=== PATIENT | female | born 1965 | race Caucasian/White ===

== ENCOUNTER 2019-06-13 10:12 | Outpatient (CLI) | payer OTHER, SELFPAY ==
[2019-06-13 10:52] LABS: Alanine Aminotransferase 19 U/L (4-35); Albumin Level 3.7 g/dL (3.5-5.1); Alkaline Phosphatase 60 U/L (38-126); Aspartate Amino Transferase 26 U/L (14-36); Bilirubin,Total 1.4 mg/dL (0.2-1.3); Blood Urea Nitrogen 17 mg/dL (7-17); Calcium 8.6 mg/dL (8.4-10.2); Carbon Dioxide 28 mmol/L (22-30); Chloride 105 mmol/L (98-107); Cholesterol 175 mg/dL (0-200); Estimated Glomerular Filt Rate > 60; Glucose 91 mg/dL (65-105); HDL Direct 46 mg/dL; Hemoglobin A1C 5.3 % (<5.7); Potassium 4.4 mmol/L (3.4-5.0); Sodium 139 mmol/L (137-145); Triglycerides 70 mg/dL (<150)
[2019-06-13 11:03] LABS: LDL Cholesterol Direct 98 mg/dL
[2019-06-13 11:20] LABS: Basophils Percent Auto 0.4 % (0.2-1.2); Eosinophils Absolute Auto 0.1 K/mm3 (0-0.3); Eosinophils Percent Auto 1.7 % (0-4.4); Hematocrit 40.2 % (37.0-47.0); Hemoglobin 13.4 g/dL (12.0-15.0); Immature Granulocyte Absolute 0.01 K/mm3 (0.00-0.031); Immature Granulocyte Percent A 0.2 % (0-0.5); Lymphocytes Absolute Auto 1.84 K/mm3 (0.9-3.2); Lymphocytes Percent Auto 39.4 % (18.3-44.2); Mean Corpuscular HGB Conc 33.3 g/dl (32-36); Mean Corpuscular Hemoglobin 30.2 pg (26-34); Mean Corpuscular Volume 90.5 fl (80-100); Mean Platelet Volume 11.3 fl (7.4-10.4); Monocytes Absolute Auto 0.5 K/mm3 (0.1-0.6); Monocytes Percent Auto 10.1 % (2.6-8.5); Neutrophils Absolute Auto 2.3 K/mm3 (1.3-6.7); Neutrophils Percent Auto 48.2 % (45.5-73.1); Platelet Count Result 222 k/mm3 (150-375); Red Blood Count 4.44 M/mm3 (4.2-5.4); Red Cell Distribution Width 11.5 % (11.5-14.5); White Blood Count 4.7 K/mm3 (4.5-10.0)
[2019-06-13 11:23] LABS: Thyroid Stimulating Hormone 0.199 uIU/mL (0.465-4.680)
[2019-06-13 11:25] LABS: Add Urine Microscopic? YES; Appearance Urine Clear (Clear); Bilirubin Urine Negative (Negative); Blood Urine Negative (Negative); Color Urine Yellow (Yellow); Glucose Urine UA Negative (Negative); Ketones Urine Negative (Negative); Leukocyte Esterase Ur Negative LEU/UL (Negative); Mucus Urine Rare /lpf; Nitrate Urine Negative (Negative); Protein Urine Negative (Negative); RBC Urine 0-2 /hpf (0-2); Specific Grav Ur 1.019 (1.001-1.035); Squamous Epithelial Cell Urine Occasional /hpf (Few); WBC Urine 0-3 /hpf
[2019-06-13 11:35] LABS: Creatinine Urine 106.1 mg/dL
[2019-06-13 11:45] LABS: MALB Creatinine Ratio < 5.7 mg/g (0-30); Microalbumin Urine Random < 6.0 mg/L (0-16.7)
[2019-06-13 11:58] LABS: Folic Acid 12.6 ng/mL (2.76->20)
[2019-06-13 12:00] LABS: Iron 125 ug/dL (37-170); Percent Iron Saturation 45 % (20-50)
[2019-06-13 12:18] LABS: Free T4 Free Thyroxine 1.63 ng/mL (0.78-2.19)
[2019-06-13 12:30] LABS: Vitamin D 25 Hydroxy 37.4 ng/mL
== END 2019-06-13 10:13 | disposition home or self-care (01) ==
PROVIDERS: PCP Internal Medicine; Visit Provider Internal Medicine
DX: F32.9 Major depressive disorder, single episode, unspecified (principal); F41.9 Anxiety disorder, unspecified; Z79.899 Other long term (current) drug therapy; E55.9 Vitamin D deficiency, unspecified; E89.0 Postprocedural hypothyroidism; G62.9 Polyneuropathy, unspecified; G47.33 Obstructive sleep apnea (adult) (pediatric); N39.0 Urinary tract infection, site not specified
CPT/HCPCS: 36415; 80053; 80061; 81001; 82043; 82306; 82607; 82728; 82746; 83036; 83540; 83550; 84439; 84443; 85025

== ENCOUNTER 2019-07-03 09:59 | Outpatient (CLI) | payer OTHER, SELFPAY ==
[2019-07-03 11:21] LABS: Hepatitis B Surface Antigen Negative (Negative)
[2019-07-03 11:27] LABS: HAV RESULT Negative (Negative); Hepatitis B Core IgM Result Negative (Negative)
[2019-07-03 11:39] LABS: Hepatitis C Virus Antibody Negative (Negative)
== END 2019-07-03 10:00 | disposition home or self-care (01) ==
PROVIDERS: PCP Internal Medicine; Visit Provider Internal Medicine
DX: Z77.21 Contact with and (suspected) exposure to potentially hazardous body fluids (principal)
CPT/HCPCS: 36415; 80074

== ENCOUNTER 2019-08-06 15:16 | Outpatient (CLI) | payer OTHER, SELFPAY ==
--- NOTE | ~2019-08-06 | DEXA_ITS ---
Bone Density Report Name: Marcie Saravia Age: 53 Sex: Female Ethnicity: White Date of : 1965 Indication: postmenopausal; prior fracture; cancer; hysterectomy; Referring Provider: PHYSICIAN NOT ON STAFF Study: Bone densitometry was performed. Exam Date: August 06, 2019 Accession number: [id number] Bone Density: Region BMD T-score Z-score Classification AP Spine (L1-L4) 0.946 -0.9 0.1 Normal Femoral Neck (Left) 0.637 -1.9 -0.9 Osteopenia Total Hip (Left) 0.830 -0.9 -0.3 Normal Total Hip Bilateral Avg 0.806 -1.1 -0.5 Osteopenia Femoral Neck (Right) 0.609 -2.2 -1.2 Osteopenia Total Hip (Right) 0.781 -1.3 -0.7 Osteopenia World Health Organization criteria for BMD impression classify patients as: Normal (T-score at or above -1.0), Osteopenia (T-score between -1.0 and -2.5), or Osteoporosis (T-score at or below -2.5). 10-year Fracture Risk: FRAX not reported because: Treated for osteoporosis Clinical Information Provided by Patient: Has had a low trauma fracture Is being treated for osteoporosis Has used the following medications: Prolmitali (i.e. denosumab) Has the following medical conditions: Cancer, Hysterectomy Patient maximum height was 67 Menopause Age: 52 Drinks caffeinated beverages Onset of menses at age 15 Number of children 2 Impression: The patient has low bone mass, based on the Right Femoral Neck T-score. The patient has risk factors, including: previous fracture. Discussion: It is important to ask patients whether they are taking their medications and to encourage continued and appropriate compliance with their osteoporosis therapies to reduce fracture risk. It is also important to review their risk factors and encourage appropriate calcium and vitamin D intakes, exercise, fall prevention and other lifestyle measures. Follow-Up: Consider a repeat BMD and Vertebral Fracture Assessment (VFA) exam in 2 years or sooner if medically necessary, to reassess this patient's status. Reported by: LIBRADO on 08/06/2019 3:48:00 PM. Reviewed, dictated and finalized at location A.
== END 2019-08-06 15:17 | disposition home or self-care (01) ==
PROVIDERS: PCP Internal Medicine
DX: C50.912 Malignant neoplasm of unspecified site of left female breast (principal); Z79.811 Long term (current) use of aromatase inhibitors; M85.851 Other specified disorders of bone density and structure, right thigh; M85.852 Other specified disorders of bone density and structure, left thigh
CPT/HCPCS: 77080

== ENCOUNTER 2019-10-23 09:32 | Outpatient (CLI) | payer OTHER, SELFPAY ==
--- NOTE | ~2019-10-23 | MR_ITS ---
EXAMINATION: MR breast BI wo con INDICATION: Patient status post bilateral mastectomy with implant reconstruction, assess implant inte grity TECHNIQUE: Axial T2 FSE ASSET, axial VIBRANT, Sagittal T2 FSE, Sagittal T2 STIR silicone SAT, Sagitta l STIR Water suppression COMPARISON: None FINDINGS: Changes of bilateral mastectomy with implant reconstruction are noted. RIGHT BREAST: The breast implant appears intact without evidence of intracapsular or extracapsular ru pture. No evidence of signal abnormalities in the axillary or internal mammary node distributions. LEFT BREAST: The breast implant appears intact without evidence of intracapsular or extracapsular rup ture. No evidence of signal abnormalities in the axillary or internal mammary node distributions.] IMPRESSION: 1. Changes of bilateral mastectomy with implant reconstruction and intact breast implants. BI-RADS Category 1: Negative Reviewed, dictated and finalized at location A. IMPRESSION: 1. Changes of bilateral mastectomy with implant reconstruction and intact breas t implants. BI-RADS Category 1: Negative
== END 2019-10-23 09:33 | disposition home or self-care (01) ==
PROVIDERS: PCP Internal Medicine
DX: C50.919 Malignant neoplasm of unspecified site of unspecified female breast (principal); Z15.02 Genetic susceptibility to malignant neoplasm of ovary; Z15.89 Genetic susceptibility to other disease; Z85.3 Personal history of malignant neoplasm of breast; Z98.890 Other specified postprocedural states
CPT/HCPCS: 77047

== ENCOUNTER 2020-09-21 09:25 | Emergency (ER) | payer OTHER, SELFPAY ==
[2020-09-21] VITALS (22 sets, daily range): BP systolic 114–124; BP diastolic 68–99; PULSE 60–83; RESP 10–28; TEMP 36.7; O2SAT 62–100
--- NOTE | ~2020-09-21 | XR_ITS ---
EXAMINATION: XR chest 2V EXAM DATE: 09/21/2020 09:44 INDICATION: Acute onset chest pain, facial numbness. Right-sided tingling. TECHNIQUE: Frontal and lateral projections of the chest obtained and reviewed. Comparison is made to prior examination from 02/13/2019. FINDINGS: The lungs are clear. There are no pleural effusions. The cardiomediastinal silhouette is within normal limits. There is no pneumothorax suspected. The bones and soft tissues are unremarkab le. There are cholecystectomy clips. IMPRESSION: No acute cardiopulmonary findings. Reviewed, dictated and finalized at location B.
--- NOTE | 2020-09-21 09:34 | ECG_ITS ---
Measurements Intervals [place] Rate: 87 P: 115 NH: 195 QRS: 106 QRSD: 71 T: 126 QT: 337 QTc: 407 Interpretive Statements SINUS RHYTHM ARM LEADS REVERSED BASELINE ARTIFACT- I, II, AVR, AVL ATYPICAL ECG Electronically Signed On 09-21-2020 10:22:07 CDT by Trey Paredes D.O.
[2020-09-21 09:48] LABS: Basophils Percent Auto 0.3 % (0.2-1.2); Eosinophils Absolute Auto 0.1 K/mm3 (0-0.3); Eosinophils Percent Auto 1.3 % (0-4.4); Hematocrit 42.7 % (37.0-47.0); Hemoglobin 14.4 g/dL (12.0-15.0); Immature Granulocyte Absolute 0.01 K/mm3 (0.00-0.031); Immature Granulocyte Percent A 0.2 % (0-0.5); Lymphocytes Absolute Auto 2.24 K/mm3 (0.9-3.2); Lymphocytes Percent Auto 36.7 % (18.3-44.2); Mean Corpuscular HGB Conc 33.7 g/dl (32-36); Mean Corpuscular Hemoglobin 30.8 pg (26-34); Mean Corpuscular Volume 91.2 fl (80-100); Mean Platelet Volume 10.4 fl (7.4-10.4); Monocytes Absolute Auto 0.5 K/mm3 (0.1-0.6); Neutrophils Absolute Auto 3.3 K/mm3 (1.3-6.7); Neutrophils Percent Auto 53.5 % (45.5-73.1); Platelet Count Result 241 k/mm3 (150-375); Red Blood Count 4.68 M/mm3 (4.2-5.4); Red Cell Distribution Width 11.3 % (11.5-14.5); White Blood Count 6.1 K/mm3 (4.5-10.0)
--- NOTE | 2020-09-21 09:53 | ED.CHESTPAIN ---
HPI - Chest Pain General Chief Complaint: Chest Pain Stated Complaint: CP Time Seen by Provider: 09/21/20 09:34 Source: RN notes reviewed History of Present Illness HPI narrative: Patient presents to emergency department from work for chest pain. 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 when she developed initially pain and tightness in her right ear rating down to her right jaw and her neck and then down into her midsternal chest she states the episode lasted for approximately 15 minutes with a feeling of pressure on her chest she states that this time the chest pain is improved she denies any previous cardiac history denies any shortness of breath with the episode she denies any fevers or chills abdominal pain nausea or vomiting Related Data Home Medications Medication Instructions Recorded Confirmed cyclobenzaprine mg 09/21/20 exemestane mg 09/21/20 levothyroxine 09/21/20 trazodone 09/21/20 valacyclovir 09/21/20 Allergies Allergy/AdvReac Type Severity Reaction Status Date / Time capsaicin Allergy Mild Palpitation Verified 09/21/20 10:15 s doxycycline Allergy Mild rash Verified 09/21/20 10:15 paclitaxel Allergy Mild Legs Verified 09/21/20 10:15 turned bright purple Sulfa (Sulfonamide Allergy Mild rash Verified 09/21/20 10:15 Antibiotics) Review of Systems Review of Systems: Narrative: Gen.: Denies fevers or chills ENT: Denies congestion Respiratory: Denies shortness of breath or cough CV: See HPI GI: Denies abdominal pain nausea, emesis or diarrhea denies burning, urgency, frequency or hematuria Musculoskeletal: Denies back pain or muscle pain Neuro: Denies numbness, tingling, weakness or focal weakness Skin: Denies rash Except as documented, all other systems reviewed and negative [facility] Past Medical History Medical History (Updated 09/21/20 @ 13:02 by Sonu Heaton DO) History of breast cancer Social History Social History (Updated 09/21/20 @ 09:54 by Sonu Heaton DO) Smoking status: Never smoker Exam Narrative: Exam Narrative: APPEARANCE: No acute distress, nontoxic, resting in bed EYES: EOMI HEENT: Normocephalic, atraumatic, OMM right TM is normal appearance RESPIRATORY: No respiratory distress Clear to auscultation bilaterally with no rhonchi wheezing or rales. CARDIOVASCULAR: Regular rate and rhythm without murmurs rubs or gallops. ABDOMINAL: Soft, nontender, nondistended, no rebound or guarding MUSCULOSKELETAl: Moves all extremities. No clubbing, cyanosis or edema. NEURO: Awake and alert. Following commands, speech normal, no focal deficits SKIN:: Warm, dry. No rashes lesions or abrasions PSYCHIATRIC: Normal affect/mood, Course Course Emergency Course: Patient has had no further episodes of chest pain while in ED Called discussed with ALLYSON Floyd who discussed the case with Dr. Curtis. Feels the patient may have 3-hour troponin and if negative may be discharged follow-up as an outpatient Discussed with patient results of workup and diagnosis. Discussed need for follow-up with primary care, proper use of medication, and reasons to return to the emergency department. Patient understands and agrees to current treatment plan Vital Signs Vital signs: Vital Signs Temperature 98.0 F 09/21/20 09:34 Pulse Rate 76 09/21/20 09:34 Respiratory Rate 22 H 09/21/20 09:34 Blood Pressure 123/84 09/21/20 09:34 Pulse Oximetry 100 09/21/20 09:34 Temperature 98.0 F 09/21/20 09:34 Pulse Rate 83 09/21/20 12:15 Respiratory Rate 18 09/21/20 12:15 Blood Pressure 121/84 09/21/20 11:05 Pulse Oximetry 100 09/21/20 12:15 MDM - Chest Pain MDM Narrative Medical decision making narrative: Patient's EKGs and labs are without significant high risk changes. Cardiac risk factors reviewed. Patient is felt likely low risk for ACS and reasonable for further risk stratification testing as an outpatient. Pain was not sudden or maxi
[2020-09-21 10:01] LABS: INR 0.9; Prothrombin Time 12.2 Seconds (11.1-14.7)
[2020-09-21 10:02] LABS: Partial Thromboplastin Time 25.3 SECONDS (22.3-36.8)
[2020-09-21 10:09] LABS: Troponin I < 0.012 ng/mL (0.000-0.034)
[2020-09-21] MEDS: ASPIRIN 81 MG CHEWABLE TABLET 324 MG PO (10:09)
[2020-09-21 10:27] LABS: Alanine Aminotransferase 19 U/L (4-35); Albumin Level 4.3 g/dL (3.5-5.1); Alkaline Phosphatase 61 U/L (38-126); Anion Gap 7 mmol/L (8-16); Aspartate Amino Transferase 27 U/L (14-36); Bilirubin,Total 1.1 mg/dL (0.2-1.3); Blood Urea Nitrogen 11 mg/dL (7-17); Calcium 9.1 mg/dL (8.4-10.2); Carbon Dioxide 28 mmol/L (22-30); Chloride 106 mmol/L (98-107); Estimated CRCL calculation 76 ml/min; Estimated Glomerular Filt Rate > 60; Glucose 88 mg/dL (65-110); Lipase 87 U/L (23-300); Potassium 4.1 mmol/L (3.4-5.0); Sodium 141 mmol/L (137-145)
[2020-09-21 11:54] LABS: D Dimer 0.27 ug/mL (<0.48)
[2020-09-21 12:55] LABS: Troponin I < 0.012 ng/mL (0.000-0.034)
== END 2020-09-21 13:24 | disposition home or self-care (01) ==
PROVIDERS: Emergency Provider Emergency Medicine
DX: R07.9 Chest pain, unspecified (principal); Z85.3 Personal history of malignant neoplasm of breast
CPT/HCPCS: 36415; 71046; 80053; 83690; 84484; 85025; 85380; 85610; 85730; 93005; 99284; A9270

== ENCOUNTER 2021-01-18 08:02 | Outpatient (CLI) | payer OTHER, SELFPAY ==
--- NOTE | ~2021-01-18 | MR_ITS ---
EXAMINATION: MR knee LT wo con DATE: 01/18/2021 09:19 INDICATION: Anterior and medial left knee pain TECHNIQUE: Magnetic resonance imaging (MRI) of the left knee was performed without intravenous contra st. Sequences included coronal PD-weighted FSE, coronal PD-weighted FS FSE, sagittal T2-weighted FSE , sagittal PD-weighted FS FSE and axial PD weighted fat saturated FSE. COMPARISON: None. FINDINGS: Medial compartment: Medial meniscus is normal. There is mild joint space narrowing with diffuse mild partial-thickness ca rtilage loss with smooth chondral surface and without degenerative subchondral changes along both the medial tibial plateau and weightbearing medial femoral condyle. Lateral compartment: Lateral meniscus is normal. Additional diffuse mild partial-thickness cartilage loss with smooth kendrick dral surface and without degenerative subchondral changes along the weightbearing lateral femoral con dyle. Patellofemoral compartment: Shallow chondral fissuring at the medial side of the medial patellar facet. Partial-thickness cartila ge loss with smooth chondral surface along the lateral side of the lateral patellar facet. Ligaments and tendons: Anterior and posterior cruciate ligaments are normal. The medial collateral ligament and fibular sherif ateral ligament complex are normal. Small amount of enthesopathic ossification and mild tendinopathy at the distal quadriceps tendon. Patellar tendon is normal. The visualized medial and lateral hamstri ng tendons as well as the iliotibial band are normal. Fluid: Physiologic amount of fluid in the joint space. No loose osteochondral bodies identified. Osseous/other: Normal marrow signal. No fracture or pathologic marrow replacing process. Mild edema at the lateral a spect of the infrapatellar fat pad which can be seen with fat pad impingement syndrome. IMPRESSION: 1. Minimal tricompartmental osteoarthritis with small region of moderate grade chondral malacia the m edial patellar facet. 2. Edema in the infrapatellar fat pad which can be seen with fat pad impingement syndrome. 3. Distal quadriceps enthesopathy. Reviewed, dictated and finalized at location A. MIXER IMPRESSION: 1. Minimal tricompartmental osteoarthritis with small region of moderate grade chondral malacia the medial patellar facet. 2. Edema in the infrapatellar fat pad which can be seen with fat pad impingemen t syndrome. 3. Distal quadriceps enthesopathy.
== END 2021-01-18 08:03 | disposition home or self-care (01) ==
PROVIDERS: Visit Provider Orthopaedic Surgery
DX: M17.12 Unilateral primary osteoarthritis, left knee (principal)
CPT/HCPCS: 73721

== ENCOUNTER 2021-03-04 07:42 | Outpatient (RCR) | payer OTHER, SELFPAY ==
--- NOTE | 2021-03-04 09:06 | PTOPEVAL ---
PHYSICAL THERAPY EVALUATION AND PLAN OF CARE 03-04-21 Thank you for referring Marcie Saravia to [facility], for the diagnosis of L knee pain/OA. She is scheduled to be seen for therapy? 1 x/week for 4 weeks. Please review, sign, date and return this plan of care YEVGENIY. I agree with and certify that the following plan of care is medically necessary. Referring Physician Date Attending Provider: Héctor Oakley MD *PT Outpatient Evaluation Start: 03/04/21 08:08 Document 03/04/21 08:05 ERICA (Rec: 03/04/21 09:00 ERICA [id number]) Therapy Assessment Status Assessment Status Assessment Status Evaluation Outpatient Past Medical History Past Medical History Source of Past Medical History Recalled from Previous Visit, Confirmed with Patient/Family Neurological History Hx Neurological Disorders No Significant History Cardiovascular History Hx Cardiac Disorders No Significant History Respiratory History Hx Respiratory Disorders No Significant History Gastrointestinal History Hx Appendectomy Yes Hx Cholecystectomy Yes Hx Gastroesophageal Reflux Disease Yes Hx Polyps Yes Genitourinary History Hx Kidney Stones Yes: x4 Musculoskeletal History Hx Arthritis Yes: all joints hurt- since cancer treatment, 5 yr oral meds just completed Hx Fractures Yes: pelvic- 3 places, ribs- thrown off horse Hx Orthopedic Surgery Yes: L knee arthroscopy; Hx Other Musculoskeletal Disorders Yes: L frozen shoulder after mastectomy; Hematological History Hx Hematological Disorders No Significant History Endocrine History Hx Hypothyroidism Yes: meds HEENT History Hx Tonsillectomy Yes Hx Ear Surgery Yes: L MASTOIDECTOMY- chronic infections, hearing aid L ear Integumentary History Hx Other Skin Disorders Yes: BASAL CELL Other History Hx Cancer Yes: breast cancer 2016 Hx Chemotherapy Yes Evaluation Information Problem Diagnosis L knee OA/ DJD Onset Oct 2020 Subjective Information gradual increase in knee pain, Query Text:As Reported By Patient/ no injury or trauma to knee; Family more issues with walking; said knee was non surgical; 01-28-21 steroid injection helped pain; had several massages over L quad and pain is less than it was Diagnostic Tests X-Rays For This Problem Yes MRI For This Problem Yes: tri
--- NOTE | 2021-05-03 13:39 | PCPTNOTE ---
PHYSICAL THERAPY DISCHARGE 05-03-21 Attending Provider: Héctor Oakley MD Patient:Marcie Saravia Date of :1965 Marcie has not returned for any further treatments since the PT evaluation on 03/04/2021, for the diagnosis of L knee pain. Therefore she will be discharged at this time. The goals were not addressed. Thank you for referring this patient to [facility]. Please review, sign, date and return this discharge summary YEVGENIY. I have been updated about the patient's current status and I agree with discharge from the above service at this time. Referring Physician Date
== END 2021-05-03 15:20 | disposition home or self-care (01) ==
LOC: ANHPT 07:42
PROVIDERS: Visit Provider Orthopaedic Surgery
DX: M25.562 Pain in left knee (principal); M17.12 Unilateral primary osteoarthritis, left knee
CPT/HCPCS: 97110; 97161

== ENCOUNTER 2021-03-12 07:32 | Outpatient (CLI) | payer OTHER, SELFPAY ==
[2021-03-12 08:16] LABS: Add Urine Microscopic? YES; Appearance Urine Clear (Clear); Bilirubin Urine Negative (Negative); Blood Urine Negative (Negative); Color Urine Straw (Yellow); Glucose Urine UA Negative (Negative); Ketones Urine Negative (Negative); Leukocyte Esterase Ur 1+ LEU/UL (Negative); Mucus Urine Rare /lpf; Nitrate Urine Negative (Negative); Protein Urine Negative (Negative); RBC Urine 0-2 /hpf (0-2); Specific Grav Ur 1.006 (1.001-1.035); Urobilinogen Urine Negative mg/dL (<2.0)
== END 2021-03-12 07:33 | disposition home or self-care (01) ==
DX: R10.9 Unspecified abdominal pain (principal)
CPT/HCPCS: 81001; 87086

== ENCOUNTER 2021-06-22 06:40 | Outpatient (CLI) | payer OTHER, SELFPAY ==
--- NOTE | ~2021-06-22 | MR_ITS ---
EXAMINATION: MR brain/brain stem wo/w con DATE: 06/22/2021 07:45 INDICATION: Confusion. Brain fog. World finding difficulty. TECHNIQUE: Magnetic resonance imaging (MRI) of the brain and brainstem was performed without and with 15 mL MultiHance intravenous contrast. COMPARISON: None. FINDINGS: There are scattered areas of nonspecific increased T2-weighted signal intensity in the cere bral white matter, which is within normal limits for the patient's age. 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 There is no intracranial hemorrhage, acute infarction, or abnormal int racranial mass lesion. The ventricles are normal in size. The mastoid air cells are normal. The paran chip sinuses are clear. The orbits are normal. IMPRESSION: 1. Normal aging brain. Reviewed, dictated and finalized at location A. IMPRESSION: 1. Normal aging brain.
[2021-06-22 07:18] LABS: Estimated Glomerular Filt Rate > 60
== END 2021-06-22 06:41 | disposition home or self-care (01) ==
LOC: ANHIMG 06:46
PROVIDERS: Visit Provider Internal Medicine Hematology & Oncology
DX: R41.89 Other symptoms and signs involving cognitive functions and awareness (principal)
CPT/HCPCS: 70553; A9577

== ENCOUNTER 2021-10-07 07:18 | Outpatient (CLI) | payer OTHER, SELFPAY ==
[2021-10-07 08:00] LABS: Alanine Aminotransferase 32 U/L (6-35); Albumin Level 4.3 g/dL (3.5-5.1); Alkaline Phosphatase 71 U/L (38-126); Anion Gap 8 mmol/L (8-16); Aspartate Amino Transferase 45 U/L (14-36); Bilirubin,Total 0.8 mg/dL (0.2-1.3); Blood Urea Nitrogen 23 mg/dL (7-17); Calcium 9.4 mg/dL (8.4-10.2); Carbon Dioxide 31 mmol/L (22-30); Chloride 98 mmol/L (98-107); Cholesterol 211 mg/dL (0-200); Estimated Glomerular Filt Rate > 60; Glucose 99 mg/dL (65-110); HDL Direct 48 mg/dL; Potassium 4.2 mmol/L (3.4-5.0); Sodium 137 mmol/L (137-145); Triglycerides 133 mg/dL (<150)
[2021-10-07 08:11] LABS: LDL Cholesterol Direct 102 mg/dL
== END 2021-10-07 07:19 | disposition home or self-care (01) ==
LOC: ANHLAB 07:22
PROVIDERS: PCP Internal Medicine; Visit Provider Internal Medicine
DX: E03.9 Hypothyroidism, unspecified (principal); Z13.1 Encounter for screening for diabetes mellitus; Z13.220 Encounter for screening for lipoid disorders
CPT/HCPCS: 36415; 80053; 80061; 84443

== ENCOUNTER 2021-11-15 07:45 | Outpatient (CLI) | payer OTHER, SELFPAY ==
--- NOTE | ~2021-11-15 | MR_ITS ---
EXAMINATION: MR breast BI wo con INDICATION: Left breast pain, patient with history of bilateral mastectomy and implant reconstruction TECHNIQUE: Axial T2 FSE ASSET, axial VIBRANT, Sagittal T2 FSE, Sagittal T2 STIR silicone SAT, Sagitta l STIR Water suppression COMPARISON: 10/23/2019 FINDINGS: Again noted are changes of bilateral mastectomy with implant reconstruction. RIGHT BREAST: The right breast implant appears intact without evidence of intracapsular or extracapsu lar rupture. No evidence of signal abnormalities in the axillary or internal mammary node distributio ns. LEFT BREAST: The left breast implant appears intact without evidence of intracapsular or extracapsula r rupture. No evidence of signal abnormalities in the axillary or internal mammary node distributions .] IMPRESSION: 1. Stable changes of bilateral mastectomy with implant reconstruction and intact breast implants. BI-RADS Category 1: Negative Reviewed, dictated and finalized at location A. IMPRESSION: 1. Stable changes of bilateral mastectomy with implant reconstruction and intac t breast implants. BI-RADS Category 1: Negative
== END 2021-11-15 07:46 | disposition home or self-care (01) ==
LOC: ANHIMG 07:50
PROVIDERS: PCP Internal Medicine
DX: C50.919 Malignant neoplasm of unspecified site of unspecified female breast (principal); Z85.3 Personal history of malignant neoplasm of breast; Z98.890 Other specified postprocedural states; Z90.13 Acquired absence of bilateral breasts and nipples; Z15.02 Genetic susceptibility to malignant neoplasm of ovary; Z13.89 Encounter for screening for other disorder; Z15.09 Genetic susceptibility to other malignant neoplasm
CPT/HCPCS: 77047

== ENCOUNTER 2022-01-24 13:07 | Outpatient (CLI) | payer OTHER, SELFPAY ==
[2022-01-24 15:12] LABS: Alanine Aminotransferase 24 U/L (6-35); Albumin Level 4.3 g/dL (3.5-5.1); Alkaline Phosphatase 86 U/L (38-126); Aspartate Amino Transferase 29 U/L (14-36)
== END 2022-01-24 13:08 | disposition home or self-care (01) ==
PROVIDERS: PCP Internal Medicine; Visit Provider Internal Medicine
DX: E03.9 Hypothyroidism, unspecified (principal); R74.8 Abnormal levels of other serum enzymes
CPT/HCPCS: 36415; 80076; 84443

== ENCOUNTER 2022-01-24 15:08 | Outpatient (CLI) | payer OTHER, SELFPAY ==
--- NOTE | ~2022-01-24 | DEXA_ITS ---
Bone Density Report Name: VARSHA CABAN Age: 56 Sex: Female Ethnicity: White Date of : 1965 Indication: hyperparathyroidism; height loss; cancer; hysterectomy; postmenopausal Referring Provider: UNKNOWN, UNKNOWN Study: Bone densitometry was performed. Exam Date: January 24, 2022 Accession number: [id number] Bone Density: Region BMD T-score Z-score Classification AP Spine(L1-L4) 0.869 -1.6 -0.4 Osteopenia Femoral Neck (Left) 0.645 -1.8 -0.7 Osteopenia Total Hip (Left) 0.807 -1.1 -0.4 Osteopenia Femoral Neck (Right) 0.590 -2.3 -1.2 Osteopenia Total Hip (Right) 0.736 -1.7 -0.9 Osteopenia Total Hip Mean 0.771 -1.4 -0.7 Osteopenia World Health Organization criteria for BMD impression classify patients as: Normal (T-score at or above -1.0), Osteopenia (T-score between -1.0 and -2.5), or Osteoporosis (T-score at or below -2.5). 10-year Fracture Risk(1): Major Osteoporotic Fracture 8.7% Hip Fracture 1.3% Reported Risk Factors: [place] (), Neck BMD=0.590, BMI=23.4 (1) FRAX(R) Version 3.08. Fracture probability calculated for an untreated patient. Fracture probability may be lower if the patient has received treatment. Clinical Information Provided by Patient: Has the following medical conditions: Cancer, Hyperparathyroidism, Hysterectomy Patient maximum height was 67 Menopause Age: 51 Drinks caffeinated beverages Onset of menses at age 15 Number of children 2 Impression: The patient has low bone mass, based on the Right Femoral Neck T-score. The patient has an estimated ten-year risk of hip fracture of 1.3% and an estimated ten-year risk of major fracture of 8.7%, based on the WHO FRAX algorithm. Discussion: BONE DENSITY IS LOW AT ONE OR MORE SKELETAL SITES. This patient's lowest T-score is low at one or more skeletal sites. It meets the World Health Organization's (WHO) criteria for ?low bone mass? (T-score between -1.0 and -2.5). The patient's 10-year risk of fracture as calculated by FRAX is less than the threshold where pharmacological therapy is recommended by the National Osteoporosis Foundation (NOF). However, all treatment decisions require clinical judgment and consideration of individual patient factors, including patient preferences, comorbidities, previous drug use, risk factors not captured in the FRAX model (e.g., frailty, falls, vitamin D deficiency, increased bone turnover, interval significant decline in bone density) and possible under or overestimation of fracture risk by FRAX. The patient should follow a healthful lifestyle (good nutrition with adequate calcium and vitamin D, and appropriate weight-bearing exercise). Follow-Up: Consider repeating this study in 2 to 3 years to reassess this patient's status, or sooner if there is some new clinical sol
== END 2022-01-24 15:09 | disposition home or self-care (01) ==
PROVIDERS: PCP Internal Medicine
DX: M85.88 Other specified disorders of bone density and structure, other site (principal); M85.852 Other specified disorders of bone density and structure, left thigh; M85.851 Other specified disorders of bone density and structure, right thigh
CPT/HCPCS: 77080

== ENCOUNTER 2022-06-02 16:29 | Outpatient (CLI) | payer OTHER, SELFPAY ==
[2022-06-02 16:43] LABS: Basophils Percent Auto 0.4 % (0.2-1.2); Eosinophils Absolute Auto 0.1 K/mm3 (0-0.3); Eosinophils Percent Auto 1.9 % (0-4.4); Hematocrit 42.3 % (37.0-47.0); Hemoglobin 13.9 g/dL (12.0-15.0); Immature Granulocyte Absolute 0.01 K/mm3 (0.00-0.031); Immature Granulocyte Percent A 0.2 % (0-0.5); Lymphocytes Absolute Auto 2.15 K/mm3 (0.9-3.2); Lymphocytes Percent Auto 41.8 % (18.3-44.2); Mean Corpuscular HGB Conc 32.9 g/dl (32-36); Mean Corpuscular Hemoglobin 30.4 pg (26-34); Mean Corpuscular Volume 92.6 fl (80-100); Mean Platelet Volume 10.1 fl (7.4-10.4); Monocytes Absolute Auto 0.5 K/mm3 (0.1-0.6); Monocytes Percent Auto 9.3 % (2.6-8.5); Neutrophils Absolute Auto 2.4 K/mm3 (1.3-6.7); Neutrophils Percent Auto 46.4 % (45.5-73.1); Platelet Count Result 236 k/mm3 (150-375); Red Blood Count 4.57 M/mm3 (4.2-5.4); Red Cell Distribution Width 11.7 % (11.5-14.5); White Blood Count 5.1 K/mm3 (4.5-10.0)
[2022-06-02 16:57] LABS: Anion Gap 7 mmol/L (8-16); Blood Urea Nitrogen 12 mg/dL (7-17); Carbon Dioxide 31 mmol/L (22-30); Chloride 103 mmol/L (98-107); Estimated Glomerular Filt Rate > 60; Glucose 91 mg/dL (65-110); Potassium 4.2 mmol/L (3.4-5.0); Sodium 141 mmol/L (137-145)
[2022-06-02 17:28] LABS: Thyroid Stimulating Hormone 0.114 uIU/mL (0.465-4.680)
== END 2022-06-02 16:30 | disposition home or self-care (01) ==
PROVIDERS: PCP Internal Medicine; Visit Provider Internal Medicine
DX: R09.89 Other specified symptoms and signs involving the circulatory and respiratory systems (principal); R51.9 Headache, unspecified; R00.9 Unspecified abnormalities of heart beat; R03.0 Elevated blood-pressure reading, without diagnosis of hypertension
CPT/HCPCS: 36415; 80048; 83735; 84443; 85025

== ENCOUNTER 2022-06-07 16:57 | Outpatient (CLI) | payer OTHER, SELFPAY ==
--- NOTE | ~2022-06-07 | CT_ITS ---
EXAMINATION: CT brain wo con DATE: 06/07/2022 17:08 INDICATION: HEADACHE . TECHNIQUE: Computed tomography (CT) of the head was performed without intravenous contrast. The mA wa s adjusted according to patient size. Iterative reconstruction technique was employed. The dose-lengt h product was 605.33 mGy-cm. COMPARISON: MR brain 06/22/2021. FINDINGS: No acute intracranial hemorrhage or extra-axial fluid collection. No hydrocephalus, mass, or herniation. No acute ischemic infarct. Unremarkable dural venous sinus attenuation. No acute osseous abnormality. Status post left mastoidectomy, the remaining aerated spaces are clear. Mild chronic white matter change. Mild intracranial atherosclerotic calcification. IMPRESSION: No acute intracranial process. Reviewed, dictated and finalized at location K.
== END 2022-06-07 16:58 | disposition home or self-care (01) ==
PROVIDERS: PCP Internal Medicine; Visit Provider Internal Medicine
DX: R51.9 Headache, unspecified (principal)
CPT/HCPCS: 70450; 82384; 83835

== ENCOUNTER 2022-06-08 07:01 | Outpatient (NON) | payer OTHER, SELFPAY ==
[2022-06-13 11:59] LABS: Metanephrine, Total Urine 276 mcg/24 h (224-832); Metanephrine, Urine 109 mcg/24 h (90-315); Normetanephrine, Urine 167 mcg/24 h (122-676)
[2022-06-18 04:04] LABS: Calculated Total (E+NE) 45 mcg/24 h (26-121); Dopamine, 24hr Urine 175 mcg/24 h (52-480); Epinephrine, 24hr Urine 7 mcg/24 h (2-24); Norepinephrine, 24hr Urine 38 mcg/24 h (15-100)
== END 2022-06-08 07:02 | disposition home or self-care (01) ==
PROVIDERS: PCP Internal Medicine; Visit Provider Internal Medicine
DX: E03.9 Hypothyroidism, unspecified (principal); R09.89 Other specified symptoms and signs involving the circulatory and respiratory systems; R51.9 Headache, unspecified; R00.9 Unspecified abnormalities of heart beat; R03.0 Elevated blood-pressure reading, without diagnosis of hypertension
CPT/HCPCS: 82384; 83835

== ENCOUNTER 2022-07-06 09:36 | Outpatient (CLI) | payer OTHER, SELFPAY ==
--- NOTE | 2022-07-16 13:10 | WPDHOMESLEEP ---
Sleep Study - Home Unattended Date of Study: 07/06/22 Ordering Provider: Brittney Mart MD Interpreting Provider: Rosemarie Salas, DO Home Sleep Study Type: Watch PAT Height: 1.69 m Weight: 68.039 kg Body Mass Index: 23.8 Neck Circumference (inches): 12.75 Raymond: 10 Reason for Sleep Study Snoring, nocturnal gasping Sleep History The patient is a 56-year-old female with hypothyroidism, anxiety, insomnia and previously diagnosed CATHY had a sleep study ordered by her primary care for evaluation of sleep apnea. The patient rarely awakens from sleep short of breath. She frequently awakens at night with heartburn, belching or cough. She constantly snores loudly enough that others complain. She rarely has trouble sleeping when she has a cold. She frequently wakes up gasping for air throughout the night. She occasionally has breathing problems at night observed by herself or others. She frequently sweats excessively at night. She rarely has heart palpitations or irregular heartbeats during the night. She rarely falls asleep during the day and never while driving. She denies sleep paralysis and cataplexy. She rarely has trouble at school or work due to sleepiness. She constantly experiences vivid dreamlike scenes upon awakening or falling asleep. She denies feeling afraid of going to sleep. She denies having nightmares. She frequently remembers her dreams. She occasionally has thoughts racing through her mind. She occasionally feels sad or depressed. She frequently has anxiety. She frequently has muscular tension. She occasionally notices parts of her body jerk. She occasionally kicks during the night. She constantly has crawling and aching feelings in her legs and constantly has leg pain during the night. She occasionally grinds her teeth during sleep and occasionally awakens with morning jaw pain. She is constantly bothered by pain during the day and constantly awakened by pain during the night. She constantly wakes up feeling stiff in the morning. She constantly wakes up with sore or achy muscles. She constantly wakes up with pain in the neck, spine or of joints. She goes to bed between 10 to 10:30 p.m. on weekdays and between 11-11:30 p.m. on the weekends. It takes her 30 minutes to fall asleep. She wakes up 1-2 times throughout the night to urinate, get a drink and deal with her acid reflux. She is able fall back asleep within 10 minutes. She wakes up between 5:15-5:30 a.m. on weekdays and between 7-8 a.m. on the weekends. She typically gets 5-6 hours of sleep per night. She will stay in bed for 5-10 minutes after waking up in the morning. He currently lives with her boyfriend. She denies consuming any caffeinated beverages within 2 hours of bedtime. She denies engaging in physical exercise before bedtime. She will watch television before falling asleep. She denies taking naps in the afternoon or the evening. She drinks 1-2 cans of caffeinated beverage per day. She drinks 1-3 alcoholic beverages per month. She denies tobacco and recreational drug use. [facility] Past Medical History Medical History History of breast cancer Left knee pain Left knee pain Social History Social History Smoking status: Never smoker Substance use: never Living arrangements: with family Gender identity (if verbalized by the patient): Female Medications Home Medications Medication Instructions Recorded Confirmed Type cyclobenzaprine 10 mg tablet mg 09/21/20 01/28/21 History exemestane 25 mg tablet mg 09/21/20 01/28/21 History levothyroxine 88 mcg tablet 09/21/20 01/28/21 History trazodone 50 mg tablet 09/21/20 01/28/21 History valacyclovir 500 mg tablet 09/21/20 01/28/21 History denosumab 60 mg/mL subcutaneous 60 mg subcut [id number] 01/11/21 01/28/21 History syringe (Prolia) docusate sodium 50
[2022-07-16 13:14] VITALS: BMI 23.8
== END 2022-07-07 12:16 | disposition home or self-care (01) ==
LOC: ANHCSM 09:38
PROVIDERS: PCP Internal Medicine; Visit Provider Internal Medicine
DX: G47.33 Obstructive sleep apnea (adult) (pediatric) (principal)
CPT/HCPCS: 95800

== ENCOUNTER 2022-07-26 12:01 | Outpatient (CLI) | payer OTHER, SELFPAY ==
[2022-07-26 17:45] LABS: Erythrocyte Sedimentation Rate 18 mm/hr (0-20)
[2022-07-27 12:59] LABS: Thyroid Stimulating Hormone 0.121 uIU/mL (0.465-4.680)
== END 2022-07-26 12:02 | disposition home or self-care (01) ==
LOC: ANHLAB 11-14 12:01
PROVIDERS: PCP Internal Medicine; Visit Provider Internal Medicine
DX: R09.89 Other specified symptoms and signs involving the circulatory and respiratory systems (principal); R51.9 Headache, unspecified; E03.9 Hypothyroidism, unspecified
CPT/HCPCS: 36415; 84443; 85652

== ENCOUNTER 2022-09-08 16:23 | Outpatient (CLI) | payer OTHER, SELFPAY | END 2022-09-08 16:24 | disposition home or self-care (01) | LOC: ANHLAB 16:25 | PROVIDERS: PCP Internal Medicine; Visit Provider Internal Medicine | DX: E03.9 Hypothyroidism, unspecified (principal) | CPT/HCPCS: 36415; 84443 ==

== ENCOUNTER 2022-09-09 06:44 | Outpatient (CLI) | payer OTHER, SELFPAY ==
--- NOTE | ~2022-09-09 | XR_ITS ---
Cervical Spine: AP, lateral, open-mouth views Clinical History: Pain Findings: There is mild reversal of the normal cervical lordosis. No fracture or subluxation evident. There is mild degenerative change at C4-C5 and C5-C6. The remaining intervertebral disc spaces are w ell maintained. There is mild to moderate facet arthropathy in the mid cervical spine. Pre-vertebral soft tissues are unremarkable. Impression: Mild degenerative spondylosis overall, as detailed above. No fracture or subluxation. Mild reversal of the normal cervical lordosis. Reviewed, dictated and finalized at location M. Impression: Mild degenerative spondylosis overall, as detailed above. No fracture or subluxation. Mild reversal of the normal cervical lordosis.
== END 2022-09-09 06:45 | disposition home or self-care (01) ==
LOC: ANHIMG 06:46
PROVIDERS: PCP Internal Medicine; Visit Provider Internal Medicine
DX: M47.892 Other spondylosis, cervical region (principal)
CPT/HCPCS: 72050

== ENCOUNTER 2022-11-23 16:00 | Outpatient (RCR) | payer OTHER, SELFPAY ==
--- NOTE | 2022-09-27 13:00 | OPREHPOC ---
Outpatient Therapy Plan of Care This is a Multidisciplinary Plan of Care that may contain components documented by all disciplines (PT, OT, and ST.) PT Problem 1 PT Problem #1 Knowledge Deficit PT Goal 1 Goal Independent with HEP Target Visit 8 PT Problem 2 PT Problem #2 Pain PT Goal 1 Goal decrease pain to no more than 3/10 after work Target Visit 8 PT Goal 2 Goal no headaches after work Target Visit 8 PT Problem 3 PT Problem #3 Impaired Range of Motion PT Goal 1 Goal BRENDON cervical to 65 degrees to help with driving Target Visit 8 PT Goal 2 Goal BRENDON lateral sidebending to 40 degrees Target Visit 8 PT Problem 4 PT Problem #4 Impaired Strength PT Goal 1 Goal grossly 4+/5 BRENDON UE and scapular stabilizers. Target Visit 8
--- NOTE | 2022-09-27 13:00 | PTOPEVAL1 ---
Assessment and note entered by Jude Hernandez, PT Evaluation Information Assessment Status Evaluation Diagnosis Neck pain Onset 2-3 months Subjective Information Patient reports having a prior history of L chest pain, but for the last 2-3 months her nack specifically the R posterior side has been feeling worse. Patient does not think it is radiating, but does have occasional N/T in the Ulnar nerve pattern on both sides. 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 Patient does use IBU, CBD topical ointment and occasionally Flexeril to help with the pain. Also uses heating pads and ice packs along with a monthly upper body massage. Patient reports it is causing headaches and that she is noticing she is having to adjust her body to get more range of motion with driving. Reported Pain Level Pain Score 4: Self Report Assessment PT Clinical Summary Marcie is a 57 year old female coming into the clinic with a diagnosis of neck pain. The patient has decreased range of motion along with tightness in the upper traps and weakness in her arms and scapular stabilizers. Physical therapy will work on stretching and strengthening exercises to improve posture and muscle alignment along with manual and modalities as needed for pain control. Physical therapy also advising patient to talk to IT about getting adjustable monitors at her worplace. Plan of Care Interventions Electrical Stimulation,Gait Training,Hot Pack/Cold Pack,Manual Therapy,Neuro Re-education,Patient/ Caregiver Education,Therapeutic Activities, Therapeutic Exercise,Ultrasound Other Interventions cupping, taping, IASTM PT Services Indicated Yes Treatment Frequency and 2x/wk for 8 visits Duration These treatments will address the objective and functional deficits as defined above. The patient will be advanced safely and appropriately in order for the patient to progress towards his/her prior level of function. Additional exercises will be introduced and as well as a comprehensive home exercise program upon discharge, if needed, ?to ensure carryover of functional gains achieved in the clinic. This treatment plan has been reviewed and agreement upon by the patient.
--- NOTE | 2022-10-25 13:16 | PTOPPROG ---
Assessment and note entered by Jude Hernandez, PT Evaluation Information Assessment Status Progress Diagnosis Neck Pain Onset 2-3 months Subjective Information Patient reports that she is feeling much better, but has been off work secondary to an [place] cruise and then bout of Covid. Yesterday was her first day back. Patient is doing her exercises at home and reports being more aware of her posture and positioning throughout the day. Assessment PT Clinical Summary Marcie is a 57 year old female coming into the clinic with a diagnosis of neck pain. She was evaluated on 09/26/22 and has attended 3 sessions. She has improved lateral flexion and rotation of the cervical region, and increase scapular strength. Would like to improve both more along with make sure being back in work consistently does not aggravate the neck too much. Plan of Care Interventions Electrical Stimulation,Gait Training,Hot Pack/Cold Pack,Manual Therapy,Neuro Re-education,Patient/ Caregiver Education,Therapeutic Activities, Therapeutic Exercise,Ultrasound Other Interventions cupping, taping, IASTM PT Services Indicated Yes Treatment Frequency and 1 times a week for 2 visits Duration These treatments will address the objective and functional deficits as defined above. The patient will be advanced safely and appropriately in order for the patient to progress towards his/her prior level of function. Additional exercises will be introduced and as well as a comprehensive home exercise program upon discharge, if needed, ?to ensure carryover of functional gains achieved in the clinic. This treatment plan has been reviewed and agreement upon by the patient.
--- NOTE | 2022-11-23 16:49 | PTOPDC ---
Assessment and note entered by Yuri Leslie Evaluation Information Assessment Status Discharge Diagnosis neck pain Onset 2-3 months Subjective Information Pt. reports she was having very little pain until yesterday. She reports she got a slight increase in pain due to a stressful day at work. She reports that despite her pain it is still less intense than prior to treatment. She reports that she is pleased with her progress and ready for discharge at this time. Reported Pain Level Pain Score 2: Self Report Assessment PT Clinical Summary Pt. has met the majority of goals established at the initial evaluation. She is encouraged to continue with her HEP and will be discharged from our care at this time. Plan of Care PT Services Indicated Yes
== END 2022-11-24 09:28 | disposition home or self-care (01) ==
LOC: ANHPT 16:00
PROVIDERS: PCP Internal Medicine; Visit Provider Internal Medicine
DX: M50.30 Other cervical disc degeneration, unspecified cervical region (principal); M85.88 Other specified disorders of bone density and structure, other site
CPT/HCPCS: 97014; 97110; 97140; 97161; G0283

== ENCOUNTER 2022-12-27 06:39 | Outpatient (CLI) | payer OTHER, SELFPAY ==
[2022-12-27 07:36] LABS: Alanine Aminotransferase 38 U/L (6-35); Albumin Level 3.9 g/dL (3.5-5.1); Alkaline Phosphatase 64 U/L (38-126); Anion Gap 4 mmol/L (8-16); Aspartate Amino Transferase 38 U/L (14-36); Bilirubin,Total 0.9 mg/dL (0.2-1.3); Blood Urea Nitrogen 13 mg/dL (7-17); Calcium 8.8 mg/dL (8.4-10.2); Carbon Dioxide 30 mmol/L (22-30); Chloride 105 mmol/L (98-107); Cholesterol 216 mg/dL (0-200); Estimated Glomerular Filt Rate > 60; Glucose 89 mg/dL (65-110); HDL Direct 56 mg/dL; Potassium 3.8 mmol/L (3.4-5.0); Sodium 139 mmol/L (137-145); Triglycerides 74 mg/dL (<150)
[2022-12-27 07:46] LABS: LDL Cholesterol Direct 118 mg/dL
[2022-12-27 07:55] LABS: Vitamin D 25 Hydroxy 44.2 ng/mL
== END 2022-12-27 06:40 | disposition home or self-care (01) ==
LOC: ANHLAB 06:41
PROVIDERS: PCP Internal Medicine; Visit Provider Internal Medicine
DX: Z13.1 Encounter for screening for diabetes mellitus (principal); Z13.220 Encounter for screening for lipoid disorders; E55.9 Vitamin D deficiency, unspecified; E03.9 Hypothyroidism, unspecified
CPT/HCPCS: 36415; 80053; 80061; 82306; 84443

== ENCOUNTER 2023-03-01 09:30 | Outpatient (CLI) | payer OTHER, SELFPAY ==
[2023-03-01 09:51] LABS: Basophils Percent Auto 0.8 % (0.2-1.2); Eosinophils Absolute Auto 0.1 K/mm3 (0-0.3); Eosinophils Percent Auto 1.5 % (0-4.4); Hematocrit 43.3 % (37.0-47.0); Hemoglobin 14.5 g/dL (12.0-15.0); Immature Granulocyte Absolute 0.01 K/mm3 (0.00-0.031); Immature Granulocyte Percent A 0.2 % (0-0.5); Lymphocytes Absolute Auto 2.01 K/mm3 (0.9-3.2); Lymphocytes Percent Auto 38.4 % (18.3-44.2); Mean Corpuscular HGB Conc 33.5 g/dl (32-36); Mean Corpuscular Hemoglobin 30.3 pg (26-34); Mean Corpuscular Volume 90.6 fl (80-100); Mean Platelet Volume 10.1 fl (7.4-10.4); Monocytes Absolute Auto 0.4 K/mm3 (0.1-0.6); Monocytes Percent Auto 7.8 % (2.6-8.5); Neutrophils Absolute Auto 2.7 K/mm3 (1.3-6.7); Neutrophils Percent Auto 51.3 % (45.5-73.1); Platelet Count Result 240 k/mm3 (150-375); Red Blood Count 4.78 M/mm3 (4.2-5.4); Red Cell Distribution Width 11.5 % (11.5-14.5); White Blood Count 5.2 K/mm3 (4.5-10.0)
[2023-03-01 10:04] LABS: Alanine Aminotransferase 21 U/L (6-35); Albumin Level 4.2 g/dL (3.5-5.1); Alkaline Phosphatase 78 U/L (38-126); Anion Gap 5 mmol/L (8-16); Aspartate Amino Transferase 25 U/L (14-36); Bilirubin,Total 1.5 mg/dL (0.2-1.3); Blood Urea Nitrogen 8 mg/dL (7-17); Calcium 9.5 mg/dL (8.4-10.2); Carbon Dioxide 32 mmol/L (22-30); Chloride 104 mmol/L (98-107); Estimated Glomerular Filt Rate > 60; Glucose 87 mg/dL (65-110); Potassium 4.3 mmol/L (3.4-5.0); Sodium 141 mmol/L (137-145)
== END 2023-03-01 09:31 | disposition home or self-care (01) ==
PROVIDERS: PCP Internal Medicine
DX: C50.912 Malignant neoplasm of unspecified site of left female breast (principal); Z09 Encounter for follow-up examination after completed treatment for conditions other than malignant neoplasm
CPT/HCPCS: 36415; 80053; 82306; 85025

== ENCOUNTER 2023-04-05 12:32 | Outpatient (CLI) | payer OTHER, SELFPAY ==
--- NOTE | 2023-04-05 16:08 | WPDSIXMINUTE ---
Six Minute Walk Procedure Procedure Performed Pulmonary Stress Test (6 min walk) Six Minute Walk Six Minute Walk: This is a 6 minute walk test. The test was performed and interpreted in accordance with the 2014 ERS/ATS task force guidelines. Findings: The patient's resting room air oxygen saturation measured by pulse oximetry was 98% and heart rate was 67 bpm. Patient ambulated for 426 meters and oxygen saturation remained 91 to 99%. Heart rate at the end of the study was 102 bpm. The patient did not qualify for supplemental oxygen at rest or with ambulation. There are no prior studies for comparison.
--- NOTE | 2023-04-05 16:09 | WPDPFTINT ---
PFT Procedure Performed PFT Procedure Performed Spirometry with Pre/Post Bronchodilator Plethysmography (Lung Vol) Diffusing Cap (DLCO) Flow Vol Loop PFT Interpretation This is a pulmonary function test with pre and post-bronchodilator spirometry, plethysmography and diffusing capacity. The test was performed and results interpreted in accordance with the 2019 and 2005 ATS/ERS Task Force guidelines respectively using the Global Lung Function Initiative-2012 reference equations. Patient demonstrated good effort and cooperation. Reproducibility criteria were met. The quality of the pre bronchodilator spirometry maneuver was Grade A and post bronchodilator spirometry maneuver was Grade A. Findings: Spirometry: The contour the inspiratory and expiratory flow tracing are normal. The pre bronchodilator FVC is 4.36 L, 124% predicted. The pre bronchodilator FEV1 is 3.20 L, 116% predicted. The pre bronchodilator FEV1: FVC ratio 73%. The post bronchodilator FVC is 4.33 L, representing a 1% decrease. The post bronchodilator FEV1 is 3.36 L, representing a 5% increase. The post bronchodilator FEV1: FVC ratio 78%. Plethysmography: The total lung capacity is 6.01 L, 112% predicted. The functional residual capacity is 3.35 L, 110% predicted. The residual volume is 1.65 L, 81% predicted. Diffusing capacity: The diffusing capacity unadjusted for hemoglobin and carboxyhemoglobin is 16.5, 72% predicted. The diffusing capacity adjusted for alveolar volume is 3.35, 76% predicted. Impression: The spirometry is normal without evidence of an obstructive abnormality. There is no significant improvement after inhaling a single dose of albuterol. The lung volumes are normal. The diffusing capacity is normal. There are no prior studies for comparison
== END 2023-04-05 12:33 | disposition home or self-care (01) ==
LOC: ANHPFT 12:34
PROVIDERS: PCP Internal Medicine; Visit Provider Nurse Practitioner Family
DX: R06.09 Other forms of dyspnea (principal)
CPT/HCPCS: 94060; 94618; 94726; 94729

== ENCOUNTER 2023-05-11 14:34 | Outpatient (CLI) | payer OTHER, SELFPAY ==
[2023-05-11 16:40] LABS: Alanine Aminotransferase 23 U/L (6-35); Albumin Level 4.1 g/dL (3.5-5.1); Alkaline Phosphatase 81 U/L (38-126); Aspartate Amino Transferase 28 U/L (14-36); Bilirubin,Total 1.1 mg/dL (0.2-1.3)
== END 2023-05-11 14:35 | disposition home or self-care (01) ==
LOC: ANHLAB 14:35
PROVIDERS: PCP Internal Medicine; Visit Provider Internal Medicine
DX: E80.6 Other disorders of bilirubin metabolism (principal); E03.9 Hypothyroidism, unspecified
CPT/HCPCS: 36415; 80076; 84443

== ENCOUNTER 2023-07-28 13:38 | Outpatient (CLI) | payer OTHER, SELFPAY ==
--- NOTE | ~2023-07-28 | CT_ITS ---
EXAMINATION:CT diagnostic chest wo con DATE: 07/28/2023 13:49 INDICATION: Other forms of dyspnea. TECHNIQUE: Computed tomography (CT) of the chest was performed without intravenous contrast. Automate d exposure control and iterative reconstruction technique were employed. The dose-length product (DLP ) was 148.26 mGy-cm. COMPARISON: None. FINDINGS: There is no pneumonia, bronchiectasis, or honeycombing. No pleural effusion. The heart size is normal. There is a small pericardial effusion. Breast implants are noted. There are changes of ch olecystectomy. There is mild thoracic spondylosis. IMPRESSION: 1. Small pericardial effusion. Reviewed, dictated and finalized at location E.
== END 2023-07-28 13:39 | disposition home or self-care (01) ==
PROVIDERS: PCP Internal Medicine; Visit Provider Physician Assistant
DX: R06.09 Other forms of dyspnea (principal); Z85.3 Personal history of malignant neoplasm of breast; I31.39 Other pericardial effusion (noninflammatory)
CPT/HCPCS: 71250

== ENCOUNTER 2023-08-21 15:58 | Outpatient (CLI) | payer OTHER, SELFPAY ==
[2023-08-21 17:23] LABS: Thyroid Stimulating Hormone 0.787 uIU/mL (0.465-4.680)
== END 2023-08-21 15:59 | disposition home or self-care (01) ==
LOC: ANHLAB 16:00
PROVIDERS: PCP Internal Medicine; Visit Provider Internal Medicine
DX: E03.9 Hypothyroidism, unspecified (principal)
CPT/HCPCS: 36415; 84443

== ENCOUNTER 2023-11-27 17:03 | Emergency (ER) | payer OTHER, SELFPAY ==
[2023-11-27 17:10] VITALS: BP 119/69; PULSE 80; RESP 16; TEMP 37; O2SAT 98
--- NOTE | 2023-11-27 17:46 | ED.EXTPRO ---
HPI - Extremity Problem General Chief complaint: Skin/Abscess/Foreign Body Stated complaint: LT Foot Pain Time Seen by Provider: 11/27/23 17:46 Source: patient, RN notes reviewed and old records reviewed Mode of arrival: ambulatory Limitations: no limitations History of Present Illness HPI Narrative: 58-year-old female presents to the [facility] with an infected 5th toe left foot. States that she did receive a pedicure on Monday, 6 days ago, developed redness, inflammation and what appears to be a abscess to the dorsal aspect Related Data Home Medications Medication Instructions Recorded Confirmed levothyroxine 88 mcg tablet 88 mcg PO DAILY 03/16/23 11/27/23 sumatriptan succinate 25 mg tablet 25 mg PO DAILY 03/16/23 11/27/23 trazodone 50 mg tablet 50 mg PO QHS PRN insomnia 03/16/23 11/27/23 bupropion HCl 300 mg 24 hr tablet, 300 mg PO DAILY 11/27/23 11/27/23 extended release valacyclovir 500 mg tablet 1,000 mg PO PRN PRN Cold Sores 11/27/23 11/27/23 Allergies Allergy/AdvReac Type Severity Reaction Status Date / Time capsaicin AdvReac Intermediate Palpitation Verified 11/27/23 17:21 s doxycycline AdvReac Mild rash Verified 11/27/23 17:21 paclitaxel AdvReac Mild Legs Verified 11/27/23 17:21 turned bright purple Sulfa (Sulfonamide AdvReac Mild rash Verified 11/27/23 17:21 Antibiotics) Review of Systems Review of Systems: All systems reviewed & are unremarkable except as noted in HPI and below Constitutional: Constitutional: Reports no additional constitutional complaints Eyes: Eyes: Reports no additional eye complaints ENT: Reports system reviewed and no additional complaints, except as documented Cardiovascular: Cardiovascular: Reports no additional cardiovascular complaints, Denies chest pain and Denies dyspnea Respiratory: Respiratory: Reports no additional respiratory complaints, Denies chest congestion, Denies cough and Denies dyspnea Gastrointestinal: Gastrointestinal: Reports no additional gastrointestinal complaints, Denies abdominal pain, Denies nausea and Denies vomiting Musculoskeletal: Musculoskeletal: Reports no additional musculoskeletal complaints Integumentary/Breasts: Skin/Breast: Reports as per HPI Neurologic: Reports system reviewed and no additional complaints, except as documented Psychiatric: Psychiatric: Reports no additional psychiatric complaints Allergic/Immunologic: Allergic/Immunologic: Reports no additional allergic/immunologic complaints PMFSH Past Medical History Medical History RUSSEL positive Anxiety and depression delivery delivered Chronic constipation Encounter for screening colonoscopy Fibromyalgia GERD (gastroesophageal reflux disease) Graves disease Herpes simplex History of basal cell cancer chest History of breast cancer History of nephrolithiasis History of squamous cell carcinoma of skin chest Hypothyroidism Left knee pain Left knee pain Migraines Mood disorder Osteopenia Restless leg Small fiber neuropathy Vitamin D insufficiency Surgical History Surgical History H/O bilateral breast implants 2016 H/O left knee surgery 1984 History of left mastoidectomy History of prophylactic mastectomy of right breast 2016 History of total abdominal hysterectomy Hx laparoscopic cholecystectomy 1999 Family History Family History Father Diabetes mellitus Hypertension Melanoma Mother Glaucoma Ignacia's disease Sibling Ignacia's disease Crohn disease Grandparent AD (Alzheimer's disease) Grandparent Parkinsons disease Breast cancer Grandparent Non Hodgkin's lymphoma Grandparent CAD (coronary artery disease) Social History Social History Smoking status: Never smoker Alcohol u
== END 2023-11-27 18:03 | disposition home or self-care (01) ==
PROVIDERS: Emergency Provider Nurse Practitioner; PCP Internal Medicine
DX: L03.032 Cellulitis of left toe (principal); M79.7 Fibromyalgia; K21.9 Gastro-esophageal reflux disease without esophagitis; E05.00 Thyrotoxicosis with diffuse goiter without thyrotoxic crisis or storm; E03.9 Hypothyroidism, unspecified; M85.80 Other specified disorders of bone density and structure, unspecified site; G25.81 Restless legs syndrome; F41.9 Anxiety disorder, unspecified; F32.A Depression, unspecified; Z85.828 Personal history of other malignant neoplasm of skin; Z85.3 Personal history of malignant neoplasm of breast; Z90.13 Acquired absence of bilateral breasts and nipples
CPT/HCPCS: 10060; 87070; 87075; 87205; 99213; G0463

== ENCOUNTER 2024-01-02 15:09 | Outpatient (CLI) | payer OTHER, SELFPAY ==
--- NOTE | ~2024-01-02 | XR_ITS ---
AP, oblique, and lateral views of the left fifth toe CLINICAL HISTORY: Pain FINDINGS: No fracture or dislocation seen. Joint spaces appear intact. There is mild soft tissue swel ling of the fifth toe. IMPRESSION: No osseous or articular abnormality. Mild soft tissue swelling, nonspecific. Reviewed, dictated and finalized at [facility]. RONMENTAL HEALTH AIDE
== END 2024-01-02 15:10 | disposition home or self-care (01) ==
LOC: ANHIMG 15:14
PROVIDERS: PCP Internal Medicine; Visit Provider Internal Medicine
DX: M79.675 Pain in left toe(s) (principal)
CPT/HCPCS: 73660

== ENCOUNTER 2024-02-29 06:49 | Outpatient (CLI) | payer OTHER, SELFPAY ==
[2024-02-29 08:02] LABS: Basophils Percent Auto 0.6 % (0.2-1.2); Eosinophils Absolute Auto 0.2 K/mm3 (0-0.3); Eosinophils Percent Auto 3.4 % (0-4.4); Hematocrit 36.9 % (37.0-47.0); Hemoglobin 12.3 g/dL (12.0-15.0); Immature Granulocyte Absolute 0.01 K/mm3 (0.00-0.031); Immature Granulocyte Percent A 0.2 % (0-0.5); Lymphocytes Absolute Auto 1.66 K/mm3 (0.9-3.2); Lymphocytes Percent Auto 35.2 % (18.3-44.2); Mean Corpuscular HGB Conc 33.3 g/dl (32-36); Mean Corpuscular Hemoglobin 31.2 pg (26-34); Mean Corpuscular Volume 93.7 fl (80-100); Mean Platelet Volume 10.5 fl (7.4-10.4); Monocytes Absolute Auto 0.5 K/mm3 (0.1-0.6); Neutrophils Absolute Auto 2.3 K/mm3 (1.3-6.7); Neutrophils Percent Auto 49.6 % (45.5-73.1); Platelet Count Result 235 k/mm3 (150-375); Red Blood Count 3.94 M/mm3 (4.2-5.4); Red Cell Distribution Width 11.9 % (11.5-14.5); White Blood Count 4.7 K/mm3 (4.5-10.0)
[2024-02-29 08:15] LABS: Alanine Aminotransferase 42 U/L (6-35); Albumin Level 3.6 g/dL (3.5-5.1); Alkaline Phosphatase 87 U/L (38-126); Aspartate Amino Transferase 38 U/L (14-36); Bilirubin,Total 0.8 mg/dL (0.2-1.3)
[2024-02-29 11:14] LABS: Iron 95 ug/dL (37-170)
[2024-02-29 11:25] LABS: Percent Iron Saturation 31 % (20-50); TOTAL IRON BINDING CAPACITY 305 ug/dL (261-462)
[2024-02-29 11:54] LABS: Hepatitis B Surface Antigen Negative (Negative)
[2024-02-29 12:00] LABS: HAV RESULT Negative (Negative); Hepatitis B Core IgM Result Negative (Negative)
[2024-02-29 12:12] LABS: Hepatitis C Virus Antibody Negative (Negative)
[2024-03-01 03:02] LABS: Creatinine, Random Urine 121 mg/dL (20-275); Total Prot/Creat ratio mg/mg 0.066 (0.024-0.184); Total Protein/Creatinine Ratio 66 mg/g creat (24-184)
[2024-03-05 17:24] LABS: Albumin 3.6 g/dL (3.8-4.8); Alpha 1 Globulin 0.3 g/dL (0.2-0.3); Alpha 2 Globulin 0.7 g/dL (0.5-0.9); Beta 1 Globulin 0.4 g/dL (0.4-0.6); Gamma Globulin 0.8 g/dL (0.8-1.7)
== END 2024-02-29 06:50 | disposition home or self-care (01) ==
PROVIDERS: PCP Internal Medicine; Visit Provider Internal Medicine
DX: R74.8 Abnormal levels of other serum enzymes (principal); Z13.0 Encounter for screening for diseases of the blood and blood-forming organs and certain disorders involving the immune mechanism
CPT/HCPCS: 36415; 80074; 80076; 82570; 83540; 83550; 84155; 84156; 84165; 84166; 85025

== ENCOUNTER 2024-02-29 06:50 | Outpatient (CLI) | payer OTHER, SELFPAY ==
[2024-02-27 07:31] LABS: Alanine Aminotransferase 37 U/L (6-35); Albumin Level 3.4 g/dL (3.5-5.1); Alkaline Phosphatase 86 U/L (38-126); Anion Gap -1 mmol/L (4-12); Aspartate Amino Transferase 35 U/L (14-36); Bilirubin,Total 0.7 mg/dL (0.2-1.3); Blood Urea Nitrogen 17 mg/dL (7-17); Calcium 8.8 mg/dL (8.4-10.2); Carbon Dioxide 31 mmol/L (22-30); Chloride 109 mmol/L (98-107); Cholesterol 219 mg/dL (0-200); Estimated Glomerular Filt Rate > 60; Glucose 99 mg/dL (65-110); HDL Direct 63 mg/dL; Potassium 4.1 mmol/L (3.4-5.0); Sodium 139 mmol/L (137-145); Triglycerides 118 mg/dL (<150)
[2024-02-27 07:42] LABS: LDL Cholesterol Direct 107 mg/dL
[2024-02-27 08:29] LABS: Vitamin D 25 Hydroxy 27.8 ng/mL
== END 2024-02-29 06:51 | disposition home or self-care (01) ==
LOC: ANHLAB 06:50
PROVIDERS: PCP Internal Medicine; Visit Provider Internal Medicine
DX: Z00.00 Encounter for general adult medical examination without abnormal findings (principal); E03.9 Hypothyroidism, unspecified; E55.9 Vitamin D deficiency, unspecified; M85.80 Other specified disorders of bone density and structure, unspecified site; Z13.1 Encounter for screening for diabetes mellitus; Z13.220 Encounter for screening for lipoid disorders
CPT/HCPCS: 36415; 80053; 80061; 82306; 84443

== ENCOUNTER 2024-03-16 07:43 | Outpatient (CLI) | payer OTHER, SELFPAY ==
--- NOTE | ~2024-03-16 | US_ITS ---
EXAMINATION: US right upper quadrant DATE: 03/16/2024 08:16 INDICATION: Abnormal liver function tests. TECHNIQUE: Multiple grayscale and Doppler ultrasound images of the abdomen were obtained. COMPARISON: Chest CT 07/28/2023 FINDINGS: The visualized portions of the head, body, and tail of the pancreas are normal. The liver i s normal without focal lesion. There is normal flow in main portal vein. The gallbladder is absent. T he common duct is normal and measures 6 mm. IMPRESSION: 1. Normal right upper quadrant ultrasound status post cholecystectomy. Reviewed, dictated and finalized at location A. WIRE INSULATOR
== END 2024-03-16 07:44 | disposition home or self-care (01) ==
PROVIDERS: PCP Internal Medicine; Visit Provider Internal Medicine
DX: R74.8 Abnormal levels of other serum enzymes (principal)
CPT/HCPCS: 76705

== ENCOUNTER 2024-05-28 07:39 | Outpatient (CLI) | payer OTHER, SELFPAY ==
--- OUTSIDE RECORDS SUMMARY | 2024-05-28 07:43 | XMS_ITS | Encounter Summary ---
Author Organization [facility] Address [address] [place] [address] Care Team Providers Care Camper Assembler Name Role Phone Enid Lowe DO Primary Care Provider [phone] Andra Mart DO Unavailable [phone] Meghann Taveras MD Unavailable [phone] Brittney Mart MD Primary Care Provider [phone] Reason for Visit * Reason Onset Date Comments MEDICATION REFILL 03/24/2021 Encounter Details Date Type Department Care Team (Late st Contact Info) Description 03/24/2021 Refill [facility] [address] [place] [address], [place] [phone] Enid Lowe DO [address] [place] [address] [address] [facility] [place] [address] MEDICATION REFILL Social History Tobacco Use Types Packs/Day Years Used Date Smoking Tobacco: Never Smokeless Tobacco: Never Alcohol Use Standard Drinks/Week Comments Yes 0 (1 standard drink = 0.6 oz pur e alcohol) Sex and Gender Information Value Date Recorded Sex Assigned at Female 04/28/2022 11:16 AM BLANKET CUTTING MACHINE OPERATOR Gender Identity Female 04/28/2022 11:16 AM BLANKET CUTTING MACHINE OPERATOR Sexual Orientation Straight 04/28/2022 11 :16 AM BLANKET CUTTING MACHINE OPERATOR documented as of this encounter Functional Status Functional Status Response Date of Assess ment Is person deaf or have serious hearing difficult y? No 11/18/2019 Is person blind or have serious difficulty seein g? No 11/18/2019 Does person have serious dif ficulty walking/climbing stairs? No 11/18/2019 Does person have difficulty dressing/bathing? No 11/18/2019 Does person have difficulty doing errands alone? No 11/18/2019 Cognitive Status Response Date of Assessm ent Does person have difficulty concentrating/remembering/making decisions? No 11/18/2019 documented as of this encounter Plan of Treatment Upcoming Encounters Date Type Department Care Team (Late st Contact Info) Description 11/22/2024 10:00 AM CDT Office Visit [facility] [address] [facility], [place] [phone] Ted Newsome MD [facility] [facility] [address]L [place] [address] 04/02/2025 9:00 AM BLANKET CUTTING MACHINE OPERATOR Office Visit [facility] - Hematology/Oncology [address] [place] [phone] Sigrid Landon, OLERICULTURE PROFESSOR-WILDLIFE BIOLOGIST [address] [place] [address] documented as of this encounter Visit Diagnoses Diagnosis Neck pain Cervicalgia documented in this encounter Care Teams Camper Assembler Relationship Specialty Start Date End Date Enid Lowe DO [address] [place] [address] PCP - General 10/03/17 04/02/24 Brittney Mart [place] [id number] PCP - General Internal Medicine 04/03/24 Andra Mart DO [address] [facility] [address] [place] [address] Mid Level Java Developer Cardiovascular Disease 10/06/20 Meghann Taveras MD [address] [facility] [address] [place] [address] Hematology and Oncology 04/23/23 documented as of this encounter
--- OUTSIDE RECORDS SUMMARY | 2024-05-28 07:43 | XMS_ITS | Encounter Summary ---
Author Organization [facility] Address [address] [facility] [place] [address] Care Team Providers Care Bowling Ball Engraver Name Role Phone Enid Lowe DO Primary Care Provider [phone] Andra Mart DO Unavailable [phone] Meghann Taveras MD Unavailable Brittney Mart MD Primary Care Provider [phone] Encounter Details Date Type Department Care Team (Late st Contact Info) Description 10/11/2019 Telephone [facility] [address] [place] [address] Dolores Rice MD [address] [place] [address] Social History Tobacco Use Types Packs/Day Years Used Date Smoking Tobacco: Never Smokeless Tobacco: Never Alcohol Use Standard Drinks/Week Comments Yes 0 (1 standard drink = 0.6 oz pur e alcohol) Sex and Gender Information Value Date Recorded Sex Assigned at Female 04/28/2022 11:16 AM PATTERN SCRATCHER Gender Identity Female 04/28/2022 11:16 AM PATTERN SCRATCHER Sexual Orientation Straight 04/28/2022 11 :16 AM PATTERN SCRATCHER COVID-19 Exposure Response Date Recorded In the last month, have you been in contact with someone who was confirmed or suspected to have Coronavirus / COVID-19? Unable to assess 10/11/2019 1:12 PM CDT documented as of this encounter Functional Status Functional Status Response Date of Assess ment Is person deaf or have serious hearing difficult y? No 03/15/2016 Is person blind or have serious difficulty seein g? No 03/15/2016 Does person have serious dif ficulty walking/climbing stairs? No 03/15/2016 Does person have difficulty dressing/bathing? No 03/15/2016 Does person have difficulty doing errands alone? No 03/15/2016 Cognitive Status Response Date of Assessm ent Does person have difficulty concentrating/remembering/making decisions? No 03/15/2016 documented as of this encounter Plan of Treatment Upcoming Encounters Date Type Department Care Team (Late st Contact Info) Description 11/22/2024 10:00 AM CDT Office Visit [facility] - D[facility]atology [address] [facility], [place] [phone] Ted Newsome MD [address] [place] [address] 3 [place] [address] 04/02/2025 9:00 AM PATTERN SCRATCHER Office Visit [facility] - Hematology/Oncology [address] [place] [phone] Sigrid Landon, DIRECTOR SOFTWARE DEVELOPMENT-GIFT BASKET PACKER [address] [place] [address] documented as of this encounter Visit Diagnoses Not on filedocumented in this encounter Care Teams Bowling Ball Engraver Relationship Specialty Start Date End Date Enid Lowe DO [address] [place] [address] PCP - General 10/03/17 04/02/24 Brittney Mart [place] [address] PCP - General Internal Medicine 04/03/24 Andra Mart DO [address] [facility] [address] [place] [address] Administrative Officer Cardiovascular Disease 10/06/20 Meghann Taveras MD [address] [facility] 3 [place] [address] Hematology and Oncology 04/23/23 documented as of this encounter
--- OUTSIDE RECORDS SUMMARY | 2024-05-28 07:43 | XMS_ITS | Encounter Summary ---
Author Organization [facility] Address [address] [facility] [place] [address] Care Team Providers Care In Shop Service Technician Name Role Phone Enid Lowe DO Primary Care Provider [phone] Andra Mart DO Unavailable [phone] Meghann Taveras MD Unavailable [phone] Brittney Mart MD Primary Care Provider [phone] Reason for Visit * Reason Onset Date Comments MEDICATION REFILL 10/29/2020 Encounter Details Date Type Department Care Team (Late st Contact Info) Description 10/29/2020 Refill [facility] [address] [place] [address], [place] [phone] Enid Lowe DO [address] [place] [address] [address] [facility] [place] [address] MEDICATION REFILL Social History Tobacco Use Types Packs/Day Years Used Date Smoking Tobacco: Never Smokeless Tobacco: Never Alcohol Use Standard Drinks/Week Comments Yes 0 (1 standard drink = 0.6 oz pur e alcohol) Sex and Gender Information Value Date Recorded Sex Assigned at Female 04/28/2022 11:16 AM OXYACETYLENE CUTTER Gender Identity Female 04/28/2022 11:16 AM OXYACETYLENE CUTTER Sexual Orientation Straight 04/28/2022 11 :16 AM OXYACETYLENE CUTTER COVID-19 Exposure Response Date Recorded In the last month, have you been in contact with someone who was confirmed or suspected to have Coronavirus / COVID-19? No / Unsure 10/01/2020 12:50 PM CDT documented as of this encounter [...] Office Visit [facility] - Dermatology [address] [place] [address], [facility] [place] [address] Ted Newsome MD [address] [place] [address] 3 [place] [address] 04/02/2025 9:00 AM OXYACETYLENE CUTTER Office Visit [facility] - Hematology/Oncology [address] [place] [phone] Sigrid Landon, BEAM CARRIER HAULER PUSHER-FORMING TUBE SELECTOR [address] [place] [address] documented as of this encounter Visit Diagnoses Not on filedocumented in this encounter Care Teams In Shop Service Technician Relationship Specialty Start Date End Date Enid Lowe DO [address] [place] [address] PCP - General 10/03/17 04/02/24 Brittney Mart MD [address] [place] [address] PCP - General Internal Medicine 04/03/24 Andra Mart DO [address] [facility] [address] [place] [address] Diversional Therapist'S Assistant Cardiovascular Disease 10/06/20 Meghann Taveras MD [address] [facility] 3 [place] [address] Hematology and Oncology 04/23/23 documented as of this encounter
--- OUTSIDE RECORDS SUMMARY | 2024-05-28 07:44 | XMS_ITS ---
Author Organization [facility] Address [address] [place] [address] Care Team Providers Care Car Sander Name Role Phone Andra Mart DO Unavailable Meghann Taveras MD Unavailable [phone] Brittney Mart MD Primary Care Provider [phone] Active Problems Problem Noted Date Diagnosed Date History of actinic keratoses 04/06/2021 Actinic keratosis 09/29/2020 Hearing loss of left ear 07/30/2020 Actinic skin damage 03/31/2020 Assessment & Plan (03/31/2020 1:47 PM ETHYL BLENDER): Explained benign nature, reassurance provided. ABCDEs of melanoma was explained to the pt, advised pt on consistent sunscreen use (SPF > 30, UVA + UVB). Monthly self-exam, and avoid direct sunlight/tanning. 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 If intervention is indicated, will make arrangements at that time Multiple benign melanocytic nevi of upper extremity, lower extremity, and trunk 12/25/2018 Assessment & Plan (03/31/2020 1:46 PM ETHYL BLENDER): - None atypical or more concerning than others on exam today - Counseled on importance of daily sun protection, and monthly self skin exams - Reviewed ABCDEs of melanoma - Advised sun protective behaviors and regular sun screen use - Annual FBSE Other seborrheic keratosis 12/25/2018 Solar lentiginosis 12/25/2018 Positive RUSSEL (antinuclear antibody) 08/07/2018 Other chronic pain 08/07/2018 Parent-child problem 07/03/2018 Closed fracture of pelvis 06/21/2018 Acquired absence of breast and absent nipple, bi lateral 09/04/2017 Hormone receptor positive breast cancer, left Cancer Staging:Pathologic stage from 10/09/2015:Stage IA(pT1b, pN0, cM0, G3, ER+, CA+, HER2+) - Signed by Meghann Taveras MD on 03/26/2023 Vitamin D insufficiency 06/21/2017 Overview (09/04/2017): Overview: 02/07 17 Hypothyroidism 06/21/2017 Overview (09/04/2017): Overview: Mignon 1991 Ablmichelleo 1992 Adhesive capsulitis of left shoulder 02/17/2017 Renal lithiasis 09/08/2016 Overview (09/04/2017): Overview: 09/12 1. A 5 mm left ureterovesical junction calculus without hydroureteronephrosis. There is mild left distal periureteral fat stranding and likely urothelial thickening which is likely reactive to the passage of the calculus. The preliminary findings were discussed with Jia Ernandez NP by Dr. Brand on 09/07/2016 at 2:58 PM. 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 Cancer Staging:Clinical: Unsigned Anxiety and depression 09/07/2015 Sensorineural hearing loss (SNHL) 09/21/2012 Referred otalgia 09/21/2012 Otogenic otalgia 09/21/2012 CATHY (obstructive sleep apnea) 06/18/2012 Overview (09/04/2017): Overview: To lay on side; no cpap Exercise-induced asthma 01/26/2012 Overview (09/04/2017): Overview: Only with exercise, uses albuterol prior GERD (gastroesophageal reflux disease) 2 Hiatal hernia 01/26/2012 Overview (09/04/2017): Overview: EGD 2007 HPV in female 01/26/2012 Overview (09/04/2017): Overview: 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 Past Plans Radiation Treatments * No radiation treatments are documented for this patient in [facility]. Treatments may have been administered in another system. Treatment Summaries Malignant neoplasm of left female breast (HCC)* Breast Treatment Summary for Marcie Saravia 1965 provided on date 11/24/16 Prepared by: Shilpa Colorado RN on date: 11/22/16 Primary Care Provider: Jia Ernandez ?? Diagnosis: Malignant neoplasm of central portion of left female breast Date of diagnosis: 08/13/15 Age of diagnosis: 49 ?? Tumor Information Malignant neoplasm of central portion of left female breast Staging form: Breast (AJCC v7) - Clinical: Stage IA (T1b, N0, cM0) - Signed by Jeffrey Blandon MD on 12/28/2015 Type: Invasive Ductal Carcinoma, 0.9 cm, grade 3, ER 95%, CA 40%, Her2 positive, Ki-67 35%; pT1bN0,stage IA ?? Surgery Information Description: Bilateral TMs, left SLNB Date: 10/09/15 Surgeon/Facility Name: Dr. Megan Bernal Adjuvant Treatment Recommendations: Medical Oncology ?? Initial Imaging PET scan - where this was performed and results: N/A CT scan: 09/01/16--[facility] Mammogram: 07/16/15 ?? Radiation Information Radiation Oncologist: N/A--not recommended ? Chemotherapy Information Medical Oncologist: Dr. Blandon Regimen: Taxotere every 3 weeks Herceptin x 12 months 11/06/15- Number of cycles: 4 Dates of treatment: 11/16/15-01/18/16 Adverse effects during treatment: neuropathy, rash ?? Genetic Testing Genetic Testing: Yes, Results: CHEK2 MUTATION ? Other Information Clinical Trials: No Pre-treatment Weight: 168 lbs Post-Treatment Weight: 173 lbs Psychosocial needs: None Fertility: S/P CORTEZ/BSO ?? Possible Late Effects of Your Cancer Treatment ?? Swelling arm ?? Alopecia/Hairloss ?? Nail discoloration ?? Peripheral neuropathy ?? Secondary leukemia or malignancy is possible ?? Depression or anxiety ?? Abnormal vaginal bleeding ?? Bony or joint pains ?? Possible cognitive changes ?? Sexual/hormonal changes ?? Alteration in blood counts ?? Changes to kidney function ?? Fibrosis and scarring of breast at treatment site ?? Darkening and drying of skin ? Cancer Surveillance Schedule You will be seen more frequently the earlier you are in your surveillance plan. Every patient will have an individualized follow up schedule based on recommendations from national cancer organizations and your specific post- treatment course. Follow up with Location How often Radiation Oncology [facility] ?? Clinical visit every 4-6 months for 5 yrs, then every 12 months Medical Oncology [facility] Surgery [facility] Mammography ?? [facility] Bilateral Diagnostic Mammogram every 12 months Reasons to call: ?? New lesions or mass ?? Chest pain ?? New feelings of sadness or being overwhelmed ?? Unintended weight loss ?? Cough that does not go away ?? Any side effects or questions of care ?? Your follow up schedule is listed below Future Appointments Date Time Provider Department Center 11/24/2016 11:00 AM Megan Bernal MD [facility] None 12/15/2016 8:00 AM Jeffrey Blandon MD HEMONC-[facility] None 12/15/2016 8:00 AM [facility]APY [facility] None 12/21/2016 9:00 AM Dolores Rice MD [id number] None 12/26/2016 8:15 AM CHEMOTHERAPY [facility] None ? Contact Information Radiation Oncologist Dr. Marino Cook Medical Oncologist Dr. Jeffrey Blandon Surgeon Dr. Megan Bernal Social Work Wire Coating Operator Metal Dr. Renetta Lawler Dietitian Pastoral Care [facility] Scheduling Primary Care Provider Jia Ernandez APN [phone] ? Recommended cancer screenings Colonoscopy: every 10 years beginning at age 50 unless directed otherwise. Last colonoscopy: 11/23/16 ?? Mammogram: Annually beginning at age 40 unless directed otherwise. Last mammogram: June 2015--no further mammograms--s/p bilateral mastectomies. ?? PAP smear: Ages 21-29--every 3 years Ages 30-65--every five years Age 66 (+)--if there is no history of abnormal PAP smears, none needed after age 65 ?? General Wellness Screening Blood Pressure: annually Weight: annually Lipids: Women age >= 45 should be screened for lipid(cholesterol) disorder Diabetes: Discuss with your primary care provider especially if you are overweight or have high blood pressure Bone Density: Women age >= 65 should be screened for osteoporosis Vision: No routine screening recommended. If you think your vision has changed, get a vision examination. Hearing: No routine screening recommended. If you think your hearing has changed, get a hearing examination. Dental: Dental examinations every 6 months are recommended. If you have had radiation, you should discuss fluoride treatments with your dentist. ? Staying Healthy Immunizations: ?? Annual flu shot ?? Tetanus booster every 10 years ?? Diptheria booster if you haven???t had one ?? Shingles vaccine at age 60 if you have had chicken pox ?? Pneumonia vaccine at ages between 19-64 if chronically ill; at age 65 for all people Sun Exposure: Wear sunscreen daily. Apply liberally when outside and wear protective clothing. Nutrition: A healthy weight and a balanced diet will Tobacco: Avoid all tobacco and vapor products. If you have not been able to quit, ask for help. Alcohol: Moderate alcohol intake is acceptable. If you think you drink too much, we can help you find resources to help you quit. Drugs: Illegal drugs should be avoided. If you use any of these substances, ask for help with stopping. Activity: Staying active helps your heart, your lungs, and your immune system. Take every opportunity to walk a few extra steps. ?? Important Resources [facility] [employer] Cancer Society cancer.org Association of Cancer Online Resources acor.org Caring Bridge caringbridge.org CancerCare cancercare.org [facility] livestrong.org National Cancer Dania cancer.gov Cancer Survivors Network csn.cancer.org National Coalition for Cancer Survivorship canceradvocacy.org [place] Society of Clinical Oncologists cancer.net Cancer Support Community [facility] www.cancersupportstl.org Radiation Therapy Questions/Answers www.rtanswers.org ? Resolved Problems Problem Noted Date Diagnosed Date Resolved Date Monoallelic mutation of CHEK 2 gene in female patient 09/04/2017 07/03/2018 S/P breast reconstruction, bilateral 07/01/2017 06/21/2018 Family history of melanoma 12/27/2015 0 07/03/2018 Adverse effect of paclitaxel 11/09/2015 07/03/2018 S/P LASIK (laser assisted in situ keratomileusis) 05/10/2012 06/21/2018
--- OUTSIDE RECORDS SUMMARY | 2024-05-28 07:44 | XMS_ITS | Encounter Summary ---
Author Organization [facility] Address [address] [place] [address] Care Team Providers Care Burlap Man Name Role Phone Enid Lowe DO Primary Care Provider [phone] Andra Mart DO Unavailable [phone] Meghann Taveras MD Unavailable [phone] Enid Lowe DO Unavailable [phone] Brittney Mart MD Primary Care Provider [phone] Reason for Visit * Reason Onset Date Comments MEDICATION REFILL 11/28/2017 Encounter Details Date Type Department Care Team (Late st Contact Info) Description [facility]/28[facility] [address] [place] [address] Sergey Veronica MD [address] [place] [address] MEDICATION REFILL Social History Tobacco Use Types Packs/Day Years Used Date Smoking Tobacco: Never Smokeless Tobacco: Never Alcohol Use Standard Drinks/Week Comments Yes 0 (1 standard drink = 0.6 oz pur e alcohol) Sex and Gender Information Value Date Recorded Sex Assigned at Female 04/28/2022 11:16 AM FIELD CARE COORDINATOR Gender Identity Female 04/28/2022 11:16 AM FIELD CARE COORDINATOR Sexual Orientation Straight 04/28/2022 11 :16 AM FIELD CARE COORDINATOR documented as of this encounter Functional Status [...] Description 11/22/2024 10:00 AM CDT [facility] [address] [place] [phone] Ted Newsome MD [address] [place] [address] 04/02/2025 9:00 AM FIELD CARE COORDINATOR Office Visit [facility] - Hematology/Oncology [address] [place] [id number] Sigrid Landon, INCOME TAX ADMINISTRATOR-DETECTIVE AUTOMOBILE SECTION [address] [place] [address] documented as of this encounter Visit Diagnoses Diagnosis Malignant neoplasm of left female breast, unspecified estrogen receptor status, unspecified site of breast (HCC) documented in this encounter Care Teams Burlap Man Relationship Specialty Start Date End Date Enid Lowe DO [address] [place] [address] PCP - General 10/03/17 04/02/24 Enid Lowe DO [address] [facility] [address] DIV OF [facility] [place] [phone] PCP - Attributed-[employer] 08/27/18 0 Brittney Mart [place] [address] PCP - General Internal Medicine 04/03/24 Andra Mart DO [address] [place] [address] [address] [place] [address] Vegetable Vendor Cardiovascular Disease 10/06/20 Meghann Taveras MD [address] [place] [address] Hematology and Oncology 04/23/23 documented as of this encounter
--- OUTSIDE RECORDS SUMMARY | 2024-05-28 07:44 | XMS_ITS | Clinical Summary ---
Author Organization [facility] Address [address] [place] [address] Care Team Providers Care Manager Security Name Role Phone Andra Mart DO Unavailable [phone] Meghann Taveras MD Unavailable [phone] Brittney Mart MD Primary Care Provider [phone] Source Comments [facility],non-owned Affiliates and Associated Physician Practices is amultiple site organization consisting of ambulatory clinics and hospital sitesin [place], [place], [place] and [place]. This disclosure is being madepursuant to the Care Everywhere program and may not contain all information available regarding this patient. Last updated 17.[facility] Allergies Active Allergy Reactions Criticality Noted Date Comments Capsaicin Palpitations Low 03/19/2014 Topical Clindamycin Rash Medium 04/03/2024 Using it for infection on toe- stopped using in October 2023 Doxycycline Rash Medium 01/26/2012 Paclitaxel Rash Medium 11/10/2015 Other reaction(s): purple legs Sulfa Antibiotics Rash Medium 02/21/2023 Sulfa Drugs Rash Medium 01/26/2012 Medications * Be aware that medications may not be up to date on this document. Alwaysverify current medications with the patient. Medication Sig Dispensed Refills Start Date End Date Status valACYclovir (VALTREX) 500 MG tablet Take 2 (two) tablets by mouth once daily as needed 30 tablet 2 10/26/2020 Active cyclobenzaprine (FLEXERIL) 10 MG tabletIndications:N onesimo pain Take 1 (one) tablet by mouth 3 times daily as needed for Muscle Spasms 30 tablet 1 03/24/2021 Active traZODone (DESYREL) 50 MG tablet TAKE 1 TABLET BY MOUTH ONCE DAILY AT BEDTIME 30 tablet 06/25/2021 Active buPROPion XL 24hr (Wellbutrin-XL) 300 MG tablet TAKE 1 TABLET BY MOUTH ONCE DAILY IN THE MORNING 10/26/2021 Active SUMAtriptan (Imitrex) 25 MG tablet TAEK ONE TABLET BY MOUTH TWICE DAILY NEEDED. TAKE AT LEAST TWO HOURS BETWEEN DOSES 09/06/2022 Active levothyroxine (Synthroid) 88 MCG tablet 09/05/2022 Active Euthyrox 100 MCG tablet Take 1 (one) tablet by mouth once daily 07/12/2022 Active triamcinolone acetonide (Kenalog) 0.1 % ointmentIndications :Other specified dermatitis Apply to affected area on trunk and ext BID. 30 day supply 454 g 11/11/2022 Active metroNIDAZOLE (Flagyl) 500 MG tablet Take 1 (one) tablet by mouth 3 times daily 90 tablet 2 11/18/2022 Active Additional Information Patient not taking.Reported on 03/22/2023 metroNIDAZOLE (Flagyl) 500 MG tabletIndications:r jennifer Take 1 (one) tablet by mouth every 8 hours Reasons: rash Active Docusate Sodium (DSS) 100 MG 09/28/2021 Active promethazine (Phenergan) 25 MG tablet 09/06/2022 Active SUMAtriptan (Imitrex) 25 MG tablet 09/06/2022 Active vitamin D3 (Cholecalciferol) 25 MCG (1000 UNITS) tablet Take 1 (one) tablet by mouth once daily Active Active Problems Problem Noted Date Diagnosed Date History of actinic keratoses 04/06/2021 Actinic keratosis 09/29/2020 Hearing loss of left ear 07/30/2020 Actinic skin damage 03/31/2020 Assessment & Plan (03/31/2020 1:47 PM PIPELINE EXECUTIVE): Explained benign nature, reassurance provided. ABCDEs of melanoma was explained to the pt, advised pt on consistent sunscreen use (SPF > 30, UVA + UVB). Monthly self-exam, and avoid direct sunlight/tanning. 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 If intervention is indicated, will make arrangements at that time Multiple benign melanocytic nevi of upper extremity, lower extremity, and trunk 12/25/2018 Assessment & Plan (03/31/2020 1:46 PM PIPELINE EXECUTIVE): - None atypical or more concerning than [...] from 10/09/2015:Stage IA(pT1b, pN0, cM0, G3, ER+, SD+, HER2+) - Signed by Meghann Taveras MD on 03/26/2023 Vitamin D insufficiency 06/21/2017 Overview (09/04/2017): Overview: 02/07 17 Hypothyroidism 06/21/2017 Overview (09/04/2017): Overview: Graves 1992 Ablatio 1992 Adhesive capsulitis of left shoulder 02/17/2017 [...] HPV in female 01/26/2012 Overview (09/04/2017): Overview: Manager Research Development twice a year Varicose veins 01/26/2012 Aerophagia Resolved Problems Problem Noted Date Diagnosed Date Resolved Date Monoallelic mutation of CHEK 2 gene in female patient 09/04/2017 07/03/2018 S/P breast reconstruction, bilateral 07/01/2017 06/21/2018 Family history of melanoma 12/27/2015 0 07/03/2018 Adverse effect of paclitaxel 11/09/2015 07/03/2018 S/P LASIK (laser assisted in situ keratomileusis) 05/10/2012 06/21/2018 Encounters Date Type Department Care Team Description 04/03/2024 10:20 AM PIPELINE EXECUTIVE Office Visit [facility] - Hematology/Oncology [address] [place] [address] Meghann Taveras MD Hormone receptor positive breast cancer, left (Primary Dx); Vitamin D insufficiency; CHEK2-related breast cancer 04/03/2024 Travel from Last 3 Months Immunizations Name Administration Dates Next Due Covid Pfizer primary monoval ent 12+ yr 0.3mL Purple cap 03/08/2020,02/16/2020 INFLUENZA VACCINE 12/11/2020, 0,12/08/2018, 018 TD (AGE 7-ADULT) 08/03/2004 TDAP (7yrs+) 07/02/2020 Family History Medical History Relation Name Comments Crohn's Disease Brother Thyroid Disease Brother CAD (Coronary Artery Disease) Father Cancer - Skin, Melanoma Father Diabetes - Type 2 Father Hyperlipidemia Father Hypertension Father None Known Maternal Aunt None Known Maternal Grandfather None Known Maternal Grandmother None Known Maternal Uncle Glaucoma Mother Thyroid Disease Mother Cancer - Ovarian Paternal Aunt 1 Cancer - Breast Paternal Aunt 2 chek 2 ge ne also Cancer Paternal Grandfather NHL Cancer - Breast Paternal Grandmother None Known Paternal Uncle None Known Sister Asthma Neg Hx CVA Neg Hx Cancer - Other Neg Hx Cancer - Skin, Non Melanoma Neg Hx Eczema Neg Hx Hemophilia Neg Hx Psoriasis Neg Hx Relation Name Status Comments Brother Alive Father Alive Maternal Aunt Maternal Grandfather Maternal Grandmother Maternal Uncle Mother Alive Paternal Aunt 1 Alive Paternal Aunt 2 Alive Paternal Grandfather Paternal Grandmother Paternal Uncle Sister Social History Tobacco Use Types Packs/Day Years Used Date Smoking Tobacco: Never Smokeless Tobacco: Never Tobacco Cessation:Counseling Given: Not Answered Alcohol Use Standard Drinks/Week Comments Not Currently 0 (1 standard drink = 0.6 oz pur e alcohol) Sex and Gender Information Value Date Recorded Sex Assigned at Female 04/28/2022 11:16 AM PIPELINE EXECUTIVE Gender Identity Female 04/28/2022 11:16 AM PIPELINE EXECUTIVE Sexual Orientation Straight 04/28/2022 11 :16 AM PIPELINE EXECUTIVE Last Filed Vital Signs Vital Sign Reading Time Taken Comments Blood Pressure 108/75 04/03/2024 10:45 AM PIPELINE EXECUTIVE Pulse 73 04/03/2024 10:45 AM PIPELINE EXECUTIVE Temperature 36.7 C (98.1 F) 04/03/2024 10:45 AM PIPELINE EXECUTIVE Respiratory Rate 20 04/03/2024 10:45 AM PIPELINE EXECUTIVE Oxygen Saturation 99% 04/03/2024 10:45 AM PIPELINE EXECUTIVE Inhaled Oxygen Concentration 21% 09/25/2018 1 :00 PM CDT Weight 74.4 kg (164 lb) 04/03/2024 10:45 AM PIPELINE EXECUTIVE Height 167.6 cm (5' 6 ) 02/07/2024 10:37 AM PIPELINE EXECUTIVE Body Mass Index 26.47 02/07/2024 10:37 AM PIPELINE EXECUTIVE Plan of Treatment Upcoming Encounters Date Type Department Care Team (Late st Contact Info) Description 11/22/2024 10:00 AM CDT Office Visit [facility] - Dermatology [address] [place] [address], [place] [id number] Ted Newsome MD [address] [place] [address] [address] [place] [address] 04/02/2025 9:00 AM PIPELINE EXECUTIVE Office Visit [facility] - Hematology/Oncology [address] [place] [phone] Sigrid Landon, AUTOMATION TESTER-STIFF STRAW HAT WASHER [address] [place] [address] Health Maintenance Due Date Last Done Comments COLOGUARD (AGES 45-75) - COLON CA SCREENING 1965 CT COLONOGRAPHY - COLON CA SCREENING 1965 FIT - COLON CA SCREENING 1965 FLEX SIG - COLON CA SCREENING 1965 HEPATITIS B VACCINE (1 of 3 - 19+ 3-dose series) 1984 PNEUMOCOCCAL VACCINE 50+ (1 of 2 - PCV) 1984 ZOSTER VACCINE (1 of 2) 08/29/2015 COVID-19 VACCINE ( season) 2023 07/11/2022, 12/04/2020, 03/08/2020, Additional history exists INFLUENZA VACCINE (#1) 2023 , 11/26/2020, 12/07/2019, Additional history exists LIPID TESTING 12/29/2023 12/28/2018, 05/0 04/2018, 01/09/2018, Additional history exists DEPRESSION SCREENING 02/28/2024 SCREENING FOR DIABETES 02/09/2025 , 02/18/2021, 08/03/2020, Additional history exists COLON MONITORING 12/19/2025 12/19/2022, , 11/18/2019, Additional history exists Colorectal Cancer Screening 12/19/2025 DTAP/TDAP/TD VACCINES (3 - Td or Tdap) 07/02/2030 07/02/2020, 08/03/2004 COLONOSCOPY - COLON CA SCREENING 12/19/2032 12/19/2022, 12/19/2022, 11/18/2019, Additional history exists MAMMOGRAM Discontinued 07/16/2015 HIV SCREENING Completed 09/13/2018 HEPATITIS C SCREENING Completed 01/23/2019 , 01/23/2019, 01/08/2015, Additional history exists HIB VACCINE Aged Out No longer eligi ble based on patient's age to complete this topic HPV VACCINE Aged Out No longer eligi ble based on patient's age to complete this topic MENINGOCOCCAL (Group B) VACCINE SHARED DECISION-MAKING Aged Out No longer eligible based on patient's age to complete this topic MENINGOCOCCAL GROUPS A/C/Y/W VACCINE Aged Out No longer eligible based on patient's age to complete this topic PAP SMEAR Discontinued Procedures Procedure Name Priority Date/Time Associated Diagnosis Comments ENDOSCOPY, COLON, SCREENING Routine 12/19/2022 10:47 AM CDT COMPREHENSIVE METABOLIC PANEL STAT 02/09/2022 11:40 AM PIPELINE EXECUTIVE Hormone receptor positive breast cancer, left Chemotherapy follow-up examination HEPATITIS C RNA QUANTITATIVE Routine 01/23/2019 3:21 PM PIPELINE EXECUTIVE Elevated liver function tests LIPID PROFILE STAT 12/28/2018 2:12 PM CDT Hormone receptor positive breast cancer, left Vitamin D insufficiency HIV-1 HIV-2 ANTIGEN/ANTIBODY STAT 09/13/2018 8:53 AM CDT MAMMO BILAT SCREENING Routine 07/16/2015 8:01 AM CDT from Last 3 Months or Most Recently Relevant to Health Maintenance Results * ENDOSCOPY, COLON, SCREENING (12/19/2022 10:47 AM CDT) Report Endoscopy POC Endoscopy Department Report _ Patient Name: Marcie Saravia Procedure Date: 12/19/2022 10:47 AM Date of : 1965 Classification: Outpatient Gender: Female Ethnicity: Not or Race: White _ Providers: Josy Agosto MD, David Torrez (Fellow) Referring MD: Procedure: Colonoscopy Indications: High risk colon cancer surveillance: Personal history of colonic polyps, CHEK 2 mutation history. Medications: Monitored Anesthesia Care Patient Profile: This is a 57 year old female. Description of Procedure: After I obtained informed consent, the scope was passed under direct vision. Throughout the procedure, the patient's blood pressure, pulse, and oxygen saturations were monitored continuously. The [id number] was introduced through the anus and advanced to the cecum, identified by appendiceal orifice and ileocecal valve. The colonoscopy was performed without difficulty. The patient tolerated the procedure well. Scope insertion time was 14 minutes. Scope withdrawal time was 23 minutes. The quality of the bowel preparation was evaluated using the BBPS ([place] Bowel Preparation Scale) with scores of: Right Colon = 2 (minor amount of residual staining, small fragments of stool and/or opaque liquid, but mucosa seen well), Transverse Colon = 3 (entire mucosa seen well with no residual staining, small fragments of stool or opaque liquid) and Left Colon = 2 (minor amount of residual staining, small fragments of stool and/or opaque liquid, but mucosa seen well). The total BBPS score equals 7. Findings: The perianal and digital rectal examinations were normal. Multiple small-mouthed diverticula were found in the sigmoid colon. The exam was otherwise without abnormality on direct and retroflexion views. Estimated Blood Loss: Estimated blood loss was minimal. Complications: No immediate complications. Impression: - Diverticulosis in the sigmoid colon. - The examination was otherwise normal on direct and retroflexion views. - No specimens collected. Recommendation: - Patient has a contact number available for emergencies. The signs and symptoms of potential delayed complications were discussed with the patient. Return to normal activities tomorrow. Written discharge instructions were provided to the patient. - High fiber diet. - Repeat colonoscopy in 3 - 5 years for surveillance. Attending Participation: I was present and participated during the entire procedure, including non-chow portions. Procedure Code(s): --- Professional --- G0105, Colorectal cancer screening; colonoscopy on individual at high risk Diagnosis Code(s): --- Professional --- Z86.010, Personal history of colonic polyps K57.30, Diverticulosis of large intestine without perforation or abscess without bleeding CPT copyright 2021 [employer]. All rights reserved. The codes documented in this report are preliminary and upon race relations adviser review may be revised to meet current compliance requirements. Josy Agosto MD, 12/19/2022 11:46:05 AM This report has been signed electronically. Note Initiated On: 12/19/2022 10:47 AM Number of Addenda: [address] [address] [facility] 12/19/2022 10:4 7 AM CDT Josy Agosto MD GI PROCEDURE ORDERAB LES [facility] * (ABNORMAL) COMPREHENSIVE METABOLIC PANEL (02/09/2022 11:40 AM [facility]) BUN 7 7 - 26 mg/dL 02/09/2022 12:20 PM [facility] Creatinine 0.77 0.56 - 0.96 mg/dL 02/09/2022 12:20 PM [facility] Sodium 139 136 - 145 mmol/L 02/09/2022 12:20 PM [facility] Potassium 3.3(L) 3.5 - 4.5 mmol/L 02/09/2022 12:20 PM [facility] Chloride 104 98 - 107 mmol/L 02/09/2022 12:20 PM [facility] CO2 27 22 - 29 mmol/L 02/09/2022 12:20 PM [facility] Glucose 74 70 - 115 mg/dL 02/09/2022 12:20 PM [facility] Calcium 9.1 8.4 - 10.2 mg/dL 02/09/2022 12:20 PM [facility] Protein Total 6.6 6.0 - 8.3 g/dL 02/09/2022 12:20 PM [facility] Albumin 3.5 3.4 - 5.0 g/dL 02/09/2022 12:20 PM [facility] Bilirubin Total 0.9 0.2 - 1.2 mg/dL 02/09/2022 12:20 PM [facility] Alkaline Phosphatase 81 40 - 150 U/L 02/09/2022 12:20 PM [facility] ALT 29 5 - 55 U/L 02/09/2022 12:20 PM [facility] AST 29 5 - 34 U/L 02/09/2022 12:20 PM [facility] Anion Gap 11 8 - 18 02/09/2022 12:20 PM [facility] BUN/Creatinine Ratio 9 7 - 23 02/09/2022 12:20 PM [facility] Osmolality Calculated 285 270 - 300 mOsm/kg 02/09/2022 12:20 PM [facility] Albumin/Globulin Ratio 1.1 1.1 - 2.3 02/09/2022 12:20 PM PIPELINE EXECUTIVE [facility] eGFR by CKD-EPI 90 >=90 mL/min/1.7 3 m2 02/09/2022 12:20 PM PIPELINE EXECUTIVE [facility] Blood BLOOD SPECIMEN / Unknown Lab Venipuncture / Unknown 02/09/2022 11:40 AM PIPELINE EXECUTIVE 02/09/2022 11:51 AM PIPELINE EXECUTIVE Taylor Funez MD LAB - CHEMISTRY [facility] Organization Address City/State/ZIP Co de Phone Number [facility] [address] [place] [address], [facility] [phone] * HEPATITIS C RNA QUANTITATIVE (01/23/2019 3:21 PM PIPELINE EXECUTIVE) Pathologist [facility] Hepatitis C RNA PCR, Interp Not Detected Not Detected 01/31/2019 2:15 PM PIPELINE EXECUTIVE [facility] Blood BLOOD SPECIMEN / Unknown Lab Venipuncture / Unknown 01/23/2019 3:21 PM PIPELINE EXECUTIVE 01/23/2019 3:55 PM PIPELINE EXECUTIVE Narrative [facility] - 01/31/2019 2:15 PM PIPELINE EXECUTIVE The Hepatitis C viral (HCV) RNA analysis utilized a serum sample, real-time reverse x ray electronics wireman PCR, and is reported as Not Detected, Detected (<12 IU/mL), Quantity (IU/mL) or >100,000,000 IU/mL. The limit of quantitation of the assay is 12 IU/mL (100% of samples with this HCV RNA level were detected). The linear range is from 12 IU/mL to 100,000,000 IU/mL. Values less than 12 IU/mL are reported as Detected (<12 IU/mL). Values greater than 100,000,000 IU/mL are reported as > 100,000,000 IU/mL. The detection/quantitation of HCV RNA in serum is based on the isolation of HCV RNA with reverse x ray electronics wireman of genomic HCV RNA followed by real-time PCR in the presence of an unrelated RNA internal control. The internal control ensures that RNA is isolated, and that no general significant inhibitors of the RT-PCR process are present. The analysis was performed using a U.S. FDA approved test methodology ([employer] Real Time HCV). Breanna Rocha MD LAB - CHEMISTRY [place] [place] [address] [place] [address], [facility] [phone] * (ABNORMAL) LIPID PROFILE (12/28/2018 2:12 PM CDT) Cholesterol Total 198 <200 mg/dL 12/28/2018 2:41 PM CDT [facility] HDL 63 >40 mg/dL 12/28/2018 2:41 PM CDT [facility] Comment: ATP III Classification of HDL Cholesterol: <40 mg/dL: Considered a major risk factor. >60 mg/dL: Considered a negative risk factor. LDL Calculated 120(H) <100 mg/dL 12/28/2018 2:41 PM CDT [facility] Comment: ATP III Classification of LDL Cholesterol: <100 mg/dL: Optimal 100 - 129 mg/dL: Near Optimal/Above Optimal 130 - 159 mg/dL: Borderline High 160 - 189 mg/dL: High >190 mg/dL: Very High Triglycerides 76 <150 mg/dL 12/28/2018 2:41 PM CDT [facility] Comment: ATP III Classification of Triglycerides: <150 mg/dL: Normal 150 - 199 mg/dL: Borderline High 200 - 400 mg/dL: High >500 mg/dL: Very High Blood BLOOD SPECIMEN / Unknown Lab Venipuncture / Unknown 12/28/2018 2:12 PM CDT 12/28/2018 2:18 PM CDT Leonor Douglas MD LAB - CHEMISTRY [place] [address] [place] [address], [facility] [phone] * HIV-1 HIV-2 ANTIGEN/ANTIBODY (09/13/2018 8:53 AM CDT) HIV Antigen/Antibod y 1 & 2 Non-reacti ve Non-react leyla 09/13/2018 9:43 AM CDT [facility] Comment: Neither HIV-1 p24 Antigen nor HIV-1/HIV-2 Antibodies are detected. Blood BLOOD SPECIMEN / Unknown Venipuncture / Unknown 09/13/2018 8:53 AM CDT 09/13/2018 8:58 AM CDT Kip Meadows MD LAB - HEMATOLOGY ORD ERABLES [address] [phone] * MAMMO BILAT SCREENING (07/16/2015 8:01 AM CDT) Anatomical Region Laterality Modality Breast Bilateral Other Impressions 07/29/2015 4:00 PM CDT IMPRESSION: 1. Group of microcalcifications in left breast warrants additional evaluation. 2. No mammographic evidence of malignancy in the right breast. ASSESSMENT: BI-RADS 0: Need additional imaging evaluation. RECOMMENDATION: Left breast diagnostic mammogram, including magnification and XCCL views. Our nurse navigator will contact the patient to notify her of these results and schedule her follow-up imaging. I, Dr. SHREYA REINA M.D. have personally reviewed and interpreted this examination/study. This report was electronically signed by SHREYA REINA M.D. on 07/29/2015 4:00 PM . Narrative 07/29/2015 4:00 PM CDT BILATERAL SCREENING MAMMOGRAM DATE: 07/16/2015. COMPARISON: Patient thought that previous mammograms have been performed at [facility]. However, no films could be found for this patient at that facility. HISTORY: Screening mammogram. Grandmother with breast cancer. TECHNIQUE: Images were performed using full field digital mammography, including implant displaced views of both breasts. CAD analysis was performed. BREAST COMPOSITION: There are scattered areas of fibroglandular density. RISK ASSESSMENT CALCULATION: Based on the information provided by the patient, her lifetime risk of breast cancer is average (<15%) (calculated at 10% by Tyrer- Cuzick model and 8% by NCI model). FINDINGS: Bilateral subpectoral saline implants are present. There is no evidence of implant rupture. There is a group of microcalcifications in a linear distribution located in the upper left breast at posterior depth, seen only on the MLO view. No suspicious mass or architectural distortion is identified in the left breast. There is no suspicious mass, clustered microcalcification, or architectural distortion in right breast. Procedure Note Shreya Reina MD - 05/27/2017 BILATERAL SCREENING MAMMOGRAM DATE: 07/16/2015. COMPARISON: Patient thought that previous [facility] have been [facility]. However, no films could be found for thispatient at that facility. HISTORY: Screening mammogram. Grandmother with breast cancer. TECHNIQUE: Images were performed using full field digital mammography,including implant displaced views of both breasts. CAD analysis wasperformed. BREAST COMPOSITION: There are scattered areas of fibroglandular density. RISK ASSESSMENT CALCULATION: Based on the information provided by thepatient, her lifetime risk of breast cancer is average (<15%) (calculatedat 10% by Tyrer- Cuzick model and 8% by NCI model). FINDINGS: Bilateral subpectoral saline implants are present. There is no evidence ofimplant rupture. There is a group of microcalcifications in a linear distribution locatedin the upper left breast at posterior depth, seen only on the MLO view. Nosuspicious mass or architectural distortion is identified in the leftbreast. There is no suspicious mass, clustered microcalcification, orarchitectural distortion in right breast. IMPRESSION IMPRESSION: 1. Group of microcalcifications in left breast warrants additionalevaluation. 2. No mammographic evidence of malignancy in the right breast. ASSESSMENT: BI-RADS 0: Need additional imaging evaluation. RECOMMENDATION: Left breast diagnostic mammogram, including magnification and XCCL views.Our nurse navigator will contact the patient to notify her of theseresults and schedule her follow-up imaging. I, Dr. SHREYA REINA M.D. have personally reviewed and interpretedthis examination/study. This report was electronically signed by SHREYA REINA M.D. on07/29/2015 4:00 PM . Historical Provider MAMMO ORDERABLES from Last 3 Months or Most Recently Relevant to Health Maintenance Advance Directives Documents on File Type Date Recorded Patient Scarfer Operator Expl anation Advance Directives and Livin g Will 10/09/2015 12:00 AM Advance Directives and Livin g Will 10/08/2015 12:00 AM * Full Code (Latest Code Status on File) Date Activated Date Inactivated Comments 09/25/2018 12:45 PM 09/25/2018 11:08 PM * Full Code Date Activated Date Inactivated Comments 03/15/2016 1:36 PM 03/16/2016 2:35 PM Care Teams Manager Security Relationship Specialty Start Date End Date Brittney Mart MD [place] [address] PCP - General Internal Medicine 04/03/24 Andra Mart DO [address] [place] [address] [address] [place] [address] [employer] Cardiovascular Disease 10/06/20 [place] [address] [place] [address] [address] [place] [address] Hematology and Oncology 04/23/23
[2024-05-28 08:12] LABS: Basophils Percent Auto 0.3 % (0.2-1.2); Eosinophils Percent Auto 0.3 % (0-4.4); Hematocrit 44.3 % (37.0-47.0); Hemoglobin 14.6 g/dL (12.0-15.0); Immature Granulocyte Absolute 0.03 K/mm3 (0.00-0.031); Immature Granulocyte Percent A 0.4 % (0-0.5); Lymphocytes Absolute Auto 2.04 K/mm3 (0.9-3.2); Lymphocytes Percent Auto 26.4 % (18.3-44.2); Mean Corpuscular Hemoglobin 29.6 pg (26-34); Mean Corpuscular Volume 89.9 fl (80-100); Mean Platelet Volume 10.1 fl (7.4-10.4); Monocytes Absolute Auto 0.7 K/mm3 (0.1-0.6); Monocytes Percent Auto 8.8 % (2.6-8.5); Neutrophils Absolute Auto 4.9 K/mm3 (1.3-6.7); Neutrophils Percent Auto 63.8 % (45.5-73.1); Platelet Count Result 256 k/mm3 (150-375); Red Blood Count 4.93 M/mm3 (4.2-5.4); Red Cell Distribution Width 11.4 % (11.5-14.5); White Blood Count 7.7 K/mm3 (4.5-10.0)
[2024-05-28 08:16] LABS: Alanine Aminotransferase 20 U/L (6-35); Albumin Level 4.4 g/dL (3.5-5.1); Alkaline Phosphatase 79 U/L (38-126); Anion Gap 9 mmol/L (4-12); Aspartate Amino Transferase 23 U/L (14-36); Blood Urea Nitrogen 17 mg/dL (7-17); Calcium 9.1 mg/dL (8.4-10.2); Carbon Dioxide 25 mmol/L (22-30); Chloride 105 mmol/L (98-107); Cholesterol 242 mg/dL (0-200); Estimated Glomerular Filt Rate > 60; Glucose 99 mg/dL (65-110); HDL Direct 77 mg/dL; Potassium 4.2 mmol/L (3.4-5.0); Sodium 139 mmol/L (137-145); Triglycerides 76 mg/dL (<150)
[2024-05-28 08:27] LABS: LDL Cholesterol Direct 122 mg/dL
[2024-05-28 10:38] LABS: Hemoglobin A1C 5.2 % (<5.7)
== END 2024-05-28 07:40 | disposition home or self-care (01) ==
LOC: ANHLAB 07:42
PROVIDERS: PCP Physician Assistant; Visit Provider Physician Assistant
DX: E66.3 Overweight (principal); E05.00 Thyrotoxicosis with diffuse goiter without thyrotoxic crisis or storm
CPT/HCPCS: 36415; 80053; 80061; 83036; 84439; 84443; 85025

== ENCOUNTER 2024-08-16 11:29 | Emergency (ER) | payer OTHER, SELFPAY ==
--- NOTE | 2024-08-16 11:31 | ED.EYEPROB ---
HPI - Eye Problem General Chief complaint: Eye Problems Stated complaint: [facility] Time Seen by Provider: 08/16/24 11:30 Source: patient Mode of arrival: ambulatory Limitations: no limitations History of Present Illness HPI Narrative: Marcie is a 58-year-old female patient presenting to the clinic today with complaints of possible pinkeye. She reports she woke up this morning and her eyes were matted shut with yellow mucopurulent discharge. States that she was having some stinging and itching of the bilateral eyes. Denies any URI symptoms. No fevers, chills, body aches. Related Data Home Medications ?Medication ?Instructions ?Recorded ?Confirmed ?Last Taken ?Type levothyroxine 88 mcg tablet 88 mcg PO DAILY 03/16/23 12/29/23 Unknown History sumatriptan succinate 25 mg tablet 25 mg PO DAILY 03/16/23 12/29/23 Unknown History trazodone 50 mg tablet 50 mg PO QHS PRN insomnia 03/16/23 12/29/23 Unknown History bupropion HCl 300 mg 24 hr tablet, 300 mg PO DAILY 11/27/23 12/29/23 Unknown History extended release valacyclovir 500 mg tablet 1,000 mg PO PRN PRN Cold Sores 11/27/23 12/29/23 Unknown History Allergies Allergy/AdvReac Type Severity Reaction Status Date / Time clindamycin Allergy Itching Verified 12/29/23 14:41 capsaicin AdvReac Intermediate Palpitation Verified 11/27/23 17:21 s paclitaxel AdvReac Mild Legs Verified 11/27/23 17:21 turned bright purple Sulfa (Sulfonamide AdvReac Mild rash Verified 11/27/23 17:21 Antibiotics) Review of Systems Review of Systems: Pertinent positives per HPI. Patient denies any fever, chills, rash, headache, visual changes, dizziness, cough, shortness of breath, chest pain, palpitations, nausea, vomiting, diarrhea, constipation, abdominal pain, or any urinary issues. [facility] Past Medical History Medical History History of squamous cell carcinoma of skin chest delivery delivered Fibromyalgia History of nephrolithiasis Vitamin D insufficiency RUSSEL positive Migraines Mood disorder Chronic constipation Graves disease GERD (gastroesophageal reflux disease) Left knee pain Left knee pain Restless leg History of basal cell cancer chest Anxiety and depression Herpes simplex Osteopenia Encounter for screening colonoscopy History of breast cancer Small fiber neuropathy Hypothyroidism Surgical History Surgical History History of left mastoidectomy History of prophylactic mastectomy of right breast 2016 H/O bilateral breast implants 2017 Hx laparoscopic cholecystectomy 1999 H/O left knee surgery 1984 History of total abdominal hysterectomy Family History Family History Father Diabetes mellitus Hypertension Melanoma Mother Glaucoma Ignacia's disease Sibling Ignacia's disease Crohn disease Grandparent AD (Alzheimer's disease) Grandparent Parkinsons disease Breast cancer Grandparent Non Hodgkin's lymphoma Grandparent CAD (coronary artery disease) Social History Social History Smoking status: Never smoker Alcohol use details: 2-3 drinks per month Substance use: never Living arrangements: with family Occupation/Education: occupation 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 There is no relevant family history pertinent to the patient complaint. Exam Narrative: General: Well-developed, well nourished, in no apparent distress Head: Normocephalic, atraumatic Eyes: Pupils equally round and reactive to light bilaterally, EOM intact, sclera clear, conjunctiva mildly injected, no discharge, lids normal Ears: TMs intact and clear, ear canals clear, no drainage, grossly hearing normal. Nose: Nares patent, no discharge, no inflammation, no sinus tenderness. Mouth: Oral pharynx without lesions or masses, good dentition, MMM. Neck: Supple, trachea midline, no enlargement of anterior or posterior cervical nodes, no thyroid masses or goiter palpable. Cardio: Regular rate and rhythm, s1 and s2 normal, no murmur appreciated. Resp: Clear to auscultation bilaterally, no rhonchi, rales, wheezing or rubs Course Course Emergency Course: Portions of this record may have been created with voice recognition software. Level of Care: Express Care Visit Vital Signs Vital signs: Vital signs reviewed MDM - Eye Problem MDM Narrative Medical decision making narrative: At the time of visit patient is resting comfortably on the exam table. Patient appears to be nontoxic. Plan: Will place patient on tobramycin eyedrops to cover for conjunctivitis. Supportive measures were discussed with the patient and they voiced understanding discharge instructions and agrees to treatment plan. Return precautions reviewed Differential Diagnosis Differential diagnosis: Likely corneal abrasion, conjunctivitis, acute iritis, hyphema, periorbital cellulitis, subconjunctival hemorrhage, glaucoma, corneal ulcer and ruptured globe Discharge Plan Discharge Clinical Impression: Conjunctivitis Qualifiers: Conjunctivitis type: acute Acute conjunctivitis type: unspecified Laterality: bilateral Qualified Code(s): H10.33 - Unspecified acute conjunctivitis, bilateral Patient Disposition: Home Condition: Stable Instructions: Antibiotic Form, Conjunctivitis (ED) Additional Instructions: Conjunctivitis is considered contagious for 24 hours while on the antibiotic. Practice good hand washing techniques Avoid touching eyes Instill eyedrops as prescribed-tobramycin May use warm moist washcloth to help remove eye discharge If eyes are matted shut-do not pry eyes open-use a warm moist cloth to loosen matting and wipe matter away from eye May take Tylenol/Motrin as needed for pain or fever May take Benadryl as needed for itching Follow-up with your PCP in 3-5 days if symptoms persist or sooner if they worsen Go to the emergency room if you develop any fever that is not controlled by Tylenol or Motrin, loss of vision, eye pain, increase eye swelling,visual changes, headache, confusion, lethargy, weakness, chest pain, or shortness of breath. Patient Language: Spanish Prescriptions: New tobramycin 0.3 % drops 1 drp EACH EYE Q4H 7 Days Qty: 5 0RF No Action bupropion HCl 300 mg tablet extended release 24 hr 300 mg PO DAILY valacyclovir 500 mg tablet 1,000 mg PO PRN PRN (Reason: Cold Sores) levothyroxine 88 mcg tablet 88 mcg PO DAILY trazodone 50 mg tablet 50 mg PO QHS PRN (Reason: insomnia) sumatriptan succinate 25 mg tablet 25 mg PO DAILY Follow-up/Referrals: Elly,ETHEL Mota [Primary Care Provider] - Time of Disposition: 11:51 Quality NIHSS Nursing Documentation ED NIHSS nursing documentation: reviewed/agree
[2024-08-16 11:38] VITALS: BP 123/84; PULSE 79; RESP 16; TEMP 36.6; O2SAT 100
== END 2024-08-16 11:55 | disposition home or self-care (01) ==
PROVIDERS: Emergency Provider Nurse Practitioner Family; PCP Physician Assistant
DX: H10.33 Unspecified acute conjunctivitis, bilateral (principal); E03.9 Hypothyroidism, unspecified; Z85.828 Personal history of other malignant neoplasm of skin; Z85.3 Personal history of malignant neoplasm of breast
CPT/HCPCS: 99213; G0463

== ENCOUNTER 2024-09-05 13:12 | Outpatient (CLI) | payer OTHER, SELFPAY ==
--- OUTSIDE RECORDS SUMMARY | 2024-09-05 13:26 | XMS_ITS ---
Author Organization [facility] Address [address] [place] [address] Care Team Providers Care Potato Chip Fryer Name Role Phone Andra Mart DO Unavailable [phone] Meghann Taveras MD Unavailable [phone] Brittney Mart MD Primary Care Provider [phone] Active Problems Problem Noted Date Diagnosed Date Nail dystrophy 08/20/2024 History of actinic keratoses 04/06/2021 Actinic keratosis 09/29/2020 Hearing loss of left ear 07/30/2020 Actinic skin damage 03/31/2020 Assessment & Plan (03/31/2020 1:47 PM BATCH AND FURNACE MANAGER): Explained benign nature, reassurance provided. ABCDEs of melanoma was explained to the pt, advised pt on consistent sunscreen use (SPF > 30, UVA + UVB). Monthly self-exam, and avoid direct sunlight/tanning. History of basal cell cancer 03/31/2020 Assessment & Plan (03/31/2020 1:47 PM BATCH AND FURNACE MANAGER): -NER today -continue q6m fbse Aromatase inhibitor use 12/28/2019 History of left breast cancer 12/28/2019 Monoallelic mutation of CHEK2 gene in female pat ient 12/26/2018 Assessment & Plan (03/31/2020 1:47 PM BATCH AND FURNACE MANAGER): -Reviewed potential for increased personal risk melanoma -Annual FBSE advised Neoplasm of uncertain behavior of skin 9 Assessment & Plan (03/31/2020 1:46 PM BATCH AND FURNACE MANAGER): -ddx bcc vs sk -R central chest - Shave Biopsy (see procedure note) - Post-biopsy handout given - Wound care instructions reviewed - Will call patient with biopsy results. If intervention is indicated, will make arrangements at that time Multiple benign melanocytic nevi of upper extremity, lower extremity, and trunk 12/25/2018 Assessment & Plan (03/31/2020 1:46 PM BATCH AND FURNACE MANAGER): - None atypical or more concerning than [...] from 10/09/2015:Stage IA(pT1b, pN0, cM0, G3, ER+, MO+, HER2+) - Signed by Meghann Taveras MD on 03/26/2023 Vitamin D insufficiency 06/21/2017 Overview (09/04/2017): Overview: 02/07 17 Hypothyroidism 06/21/2017 Overview (09/04/2017): Overview: Mignon 1992 Ablatio 1992 Adhesive capsulitis of left [...] HPV in female 01/26/2012 Overview (09/04/2017): Overview: Image Consultant twice a year Varicose veins 01/26/2012 Aerophagia Current Treatment and Therapy Plans No current plan information found. Past Treatment and Therapy Plans Treatment Summaries Malignant neoplasm of left female [...] Carcinoma, 0.9 cm, grade 3, ER 95%, MO 40%, Her2 positive, Ki-67 35%; pT1bN0,stage IA [...] up with Location How often Radiation Oncology [facility] ?? Clinical visit every 4-6 months for 5 yrs, then every 12 months Medical Oncology [facility] Surgery [facility] Mammography ?? [facility] Bilateral Diagnostic Mammogram every 12 months [...] None 12/21/2016 9:00 AM Dolores Rice MD [id number] None 12/26/2016 8:15 AM CHEMOTHERAPY [facility] None ? Contact Information Radiation Oncologist Dr. Marino Cook Medical Oncologist Dr. Jeffrey Blandon Surgeon Dr. Megan Bernal Social Work Dust Box Tender Dr. Renetta Lawler Dietitian Pastoral Care [facility] Hospital Scheduling Primary Care Provider Jia Ernandez APN [phone] ? Recommended cancer screenings Colonoscopy: every 10 [...] ?? Important Resources [facility] [employer] Cancer Society cancer.org Association of Cancer Online Resources acor.org Caring Bridge caringbridge.org CancerCare cancercare.org [facility] livestrong.org National Cancer [place] cancer.gov Cancer Survivors Network csn.cancer.org National Coalition for Cancer Survivorship canceradvocacy.org [place] Society of Clinical Oncologists cancer.net Cancer Support Community [facility] www.cancersupportstl.org Radiation Therapy Questions/Answers www.rtanswers.org ? Resolved Problems Problem Noted Date Diagnosed Date Resolved Date Monoallelic mutation of CHEK 2 gene in female patient 09/04/2017 07/03/2018 S/P breast reconstruction, bilateral 07/01/2017 06/21/2018 Family history of melanoma 12/27/2015 0 07/03/2018 Adverse effect of paclitaxel 11/09/2015 07/03/2018 S/P LASIK (laser assisted in situ keratomileusis) 05/10/2012 06/21/2018
--- OUTSIDE RECORDS SUMMARY | 2024-09-05 13:26 | XMS_ITS | Encounter Summary ---
Author Organization [facility] Address [address] [place] [address] Care Team Providers Care Seaport Planning Manager Name Role Phone Enid Lowe DO Primary Care Provider [phone] Andra Mart DO Unavailable [phone] Meghann Taveras MD Unavailable Brittney Mart MD Primary Care Provider [phone] Reason for Visit * Reason Onset Date Comments MEDICATION REFILL 10/29/2020 Encounter Details Date Type Department Care Team (Late st Contact Info) Description 10/29/2020 Refill [facility] [address] [place] [address], [place] [phone] Enid Lowe DO [address] [place] [address] [address] [facility] [place] [address] MEDICATION REFILL Social History Tobacco Use Types Packs/Day Years Used Date Smoking Tobacco: Never Smokeless Tobacco: Never Alcohol Use Standard Drinks/Week Comments Yes 0 (1 standard drink = 0.6 oz pur e alcohol) Comments No Sex and Gender Information Value Date Recorded Sex Assigned at Female 04/28/2022 11:16 AM REMOTE ADVISOR Legal Sex Female 10:54 AM CDT Gender Identity Female 04/28/2022 11:16 AM REMOTE ADVISOR Sexual Orientation Straight 04/28/2022 11 :16 AM REMOTE ADVISOR Occupation Industry Job Start Date Job End Date nurse Not on file Not on file Not on file COVID-19 Exposure Response Date Recorded In the last month, have you been in contact with someone who was confirmed or suspected to have Coronavirus / COVID-19? No / Unsure 10/01/2020 12:50 PM CDT documented as of this encounter Functional Status * Is person deaf or have serious hearing difficulty? Answer Date of Assessment Author No 11/18/2019 11:05 AM CDT Jessica Aleman RN * Is person blind or have serious difficulty seeing? Answer Date of Assessment Author No 11/18/2019 11:05 AM LEANNT Jessica Aleman RN * Does person have serious difficulty walking/climbing stairs? Answer Date of Assessment Author No 11/18/2019 11:05 AM Jessica Chambers RN * Does person have difficulty dressing/bathing? Answer Date of Assessment Author No 11/18/2019 11:05 AM Jessica Chambers RN * Does person have difficulty doing errands alone? Answer Date of Assessment Author No 11/18/2019 11:05 AM Jessica Chambers RN documented as of this encounter Mental Status * Does person have difficulty concentrating/remembering/making decisions? Answer Entry Date Author No 11/18/2019 11:05 AM Jessica Chambers RN documented in this encounter Plan of Treatment Upcoming Encounters Date Type Department Care Team (Late st Contact Info) Description 11/22/2024 10:00 AM CDT Office Visit [facility] Derm[facility] [address] [place] [address], [place] [address] Ted Newsome MD [address] [place] [address] [place] [address] 01/08/2025 11:15 AM REMOTE ADVISOR Office Visit [facility] Plastic [facility] [address] [place] [address], [place] [address] Dolores Rice MD [address] [facility] 2L [place] [address] 04/09/2025 10:20 AM REMOTE ADVISOR Office Visit [facility] - Hematology/Oncology [address] [place] [phone] Sigrid Landon, FOREST AIDE-TESTER [place]OCKET ENGINE [address] [place] [address] documented as of this encounter Visit Diagnoses Not on filedocumented in this encounter Care Teams Seaport Planning Manager Relationship Specialty Start Date End Date Enid Lowe DO [address] [place] [address] PCP - General 10/03/17 04/02/24 Brittney Mart [place] [address] PCP - General Internal Medicine 04/03/24 Andra Mart DO [address] [facility] [address] [place] [address] Aircraft Instrument Repairer Cardiovascular Disease 10/06/20 Meghann Taveras MD [address] [facility] [address] [place] [address] Hematology and Oncology 04/23/23 documented as of this encounter
--- OUTSIDE RECORDS SUMMARY | 2024-09-05 13:26 | XMS_ITS | Encounter Summary ---
Author Organization [facility] Address [address] [facility] [place] [address] Care Team Providers Care Relationship Mgr Name Role Phone Enid Lowe DO Primary Care Provider [phone] Andra Mart DO Unavailable [phone] Meghann Taveras MD Unavailable [phone] Enid Lowe DO Unavailable [phone] Brittney Mart MD Primary Care Provider [phone] Reason for Visit * Reason Onset Date Comments MEDICATION REFILL 11/28/2017 Encounter Details Date Type Department Care Team (Late st Contact Info) Description 11/28/2017 [facility] [address] [place] [address] Sergey Veronica MD [address] [place] [address] MEDICATION REFILL Social History Tobacco Use Types Packs/Day Years Used Date Smoking Tobacco: Never Smokeless Tobacco: Never Alcohol Use Standard Drinks/Week Comments Yes 0 (1 standard drink = 0.6 oz pur e alcohol) Comments No Sex and Gender Information Value Date Recorded Sex Assigned at Female 04/28/2022 11:16 AM GYM MANAGER Legal Sex Female 10:54 AM CDT Gender Identity Female 04/28/2022 11:16 AM GYM MANAGER Sexual Orientation Straight 04/28/2022 11 :16 AM GYM MANAGER 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 Answer Date of Assessment Author No 03/15/2016 6:52 AM Nikky Sharpe RN * Is person blind or have serious difficulty seeing? Answer Date of Assessment Author No 03/15/2016 6:52 AM Nikky Sharpe RN * Does person have serious difficulty walking/climbing stairs? Answer Date of Assessment Author No 03/15/2016 6:52 AM Nikky Sharpe RN * Does person have difficulty dressing/bathing? Answer Date of Assessment Author No 03/15/2016 6:52 AM Nikky Sharpe RN * Does person have difficulty doing errands alone? Answer Date of Assessment Author No 03/15/2016 6:52 AM Nikky Sharpe RN documented as of this encounter Mental Status * Does person have difficulty concentrating/remembering/making decisions? Answer Entry Date Author No 03/15/2016 6:52 AM Nikky Sharpe RN documented in this encounter Plan of Treatment Upcoming Encounters Date Type Department Care Team (Late st Contact Info) Description 11/22/2024 10:00 AM CDT Office Visit [facility] Dermatology [address] [place] [address], [place] [address] Ted Newsome MD [address] [place] [address] [address] [place] [address] 01/08/2025 11:15 AM GYM MANAGER Office Visit [facility] Plastic Surgery [address] [place] [address], [place] [address] Dolores Rice MD [address] [place] [address] [address] [place] [address] 04/09/2025 10:20 AM GYM MANAGER Office Visit [facility] - Hematology/Oncology [address] [place] [phone] Sigrid Landon APRN-MOTORCYCLE ASSEMBLER [address] [place] [address] documented as of this encounter Visit Diagnoses Diagnosis Malignant neoplasm of left female breast, unspecified estrogen receptor status, unspecified site of breast (HCC) documented in this encounter Care Teams Relationship Mgr Relationship Specialty Start Date End Date Enid Lowe DO [address] [place] [address] PCP - General 10/03/17 04/02/24 Enid Lowe DO [address] [facility] 2L [place] [address] PCP - Attributed-[employer] 08/27/18 0 Brittney Mart MD [address] [place] [address] PCP - General Internal Medicine 04/03/24 Andra Mart DO [address] [facility] [address] [place] [address] Cutter Grinder Cardiovascular Disease 10/06/20 Meghann Taveras MD [address] [facility] [address] [place] [address] Hematology and Oncology 04/23/23 documented as of this encounter
--- OUTSIDE RECORDS SUMMARY | 2024-09-05 13:26 | XMS_ITS | Encounter Summary ---
Author Organization [facility] Address [address] [facility] [place] [address] Care Team Providers Care Rehabilitation Supervisor Name Role Phone Enid Lowe DO Primary Care Provider [phone] Andra Mart DO Unavailable [phone] Meghann Taveras MD Unavailable [phone] Brittney Mart MD Primary Care Provider [phone] Encounter Details Date Type Department Care Team (Late st Contact Info) Description 10/11/2019 Telephone [facility] [address] [place] [address] Dolores Rice MD [address] [address] Social History Tobacco Use Types Packs/Day Years Used Date Smoking Tobacco: Never Smokeless Tobacco: Never Alcohol Use Standard Drinks/Week Comments Yes 0 (1 standard drink = 0.6 oz pur e alcohol) Comments No Sex and Gender Information Value Date Recorded Sex Assigned at Female 04/28/2022 11:16 AM SPACE SCIENCES DIRECTOR Legal Sex Female 10:54 AM CDT Gender Identity Female 04/28/2022 11:16 AM SPACE SCIENCES DIRECTOR Sexual Orientation Straight 04/28/2022 11 :16 AM SPACE SCIENCES DIRECTOR Occupation Industry Job Start Date Job End [...] Office Visit [facility] [address] [place] [address], [place] [address] Ted Newsome MD [address] [place] [address] [address] [place] [address] 01/08/2025 11:15 AM SPACE SCIENCES DIRECTOR Office Visit [facility]astic Surgery [address] [place] [address], [place] [address] Dolores Rice MD [address] [place] [address] [address] [place] [address] 04/09/2025 10:20 AM SPACE SCIENCES DIRECTOR Office Visit [facility] - Hematology/Oncology [address] [place] [address] Sigrid Landon, FOREST LOGISTICS MANAGER-OSTEOPATHIC RESIDENT [address] [place] [address] documented as of this encounter Visit Diagnoses Not on filedocumented in this encounter Care Teams Rehabilitation Supervisor Relationship Specialty Start Date End Date Enid Lowe DO [address] [place] [address] PCP - General 10/03/17 04/02/24 [place] [address] PCP - General Internal Medicine 04/03/24 Andra Mart DO [address] [facility] [address] [place] [address] District Sales Leader Cardiovascular Disease 10/06/20 Meghann Taveras MD [address] [facility] [address] [place] [address] Hematology and Oncology 04/23/23 documented as of this encounter
--- OUTSIDE RECORDS SUMMARY | 2024-09-05 13:26 | XMS_ITS | Clinical Summary ---
Author Organization [facility] [employer] Address [address] [place] [address] Care Team Providers Care [place] Attendant Name Role Phone Andra Mart DO Unavailable [phone] Meghann Taveras MD Unavailable [phone] Brittney Mart MD Primary Care Provider [phone] Source Comments [facility] [employer],non-owned Affiliates and Associated Physician Practices is amultiple site organization consisting of ambulatory clinics and hospital sitesin [place], [place], [place] and [place]. This disclosure is being madepursuant to the Care Everywhere program and may not contain all information available regarding this patient. Last updated 17.[facility] [employer] Allergies Active Allergy Reactions Criticality Noted Date [...] document. Alwaysverify current medications with the patient. valACYclovir (VALTREX) 500 MG tablet Take 2 (two) tablets by mouth once daily as needed 30 tablet 2 1 Active cyclobenzaprine (FLEXERIL) 10 MG tabletIndicatio ns:Neck pain Take 1 (one) tablet by mouth 3 times daily as needed for Muscle Spasms 30 tablet 1 2 Active traZODone (DESYREL) 50 MG tablet TAKE 1 TABLET BY MOUTH ONCE DAILY AT BEDTIME 30 tablet 2 Active buPROPion XL 24hr (Wellbutrin-XL) 300 MG tablet TAKE 1 TABLET BY MOUTH ONCE DAILY IN THE MORNING 2 Active SUMAtriptan (Imitrex) 25 MG tablet TAEK ONE TABLET BY MOUTH TWICE DAILY NEEDED. TAKE AT LEAST TWO HOURS BETWEEN DOSES 3 Active levothyroxine (Synthroid) 88 MCG tablet 3 Active Euthyrox 100 MCG tablet Take 1 (one) tablet by mouth once daily 3 Active triamcinolone acetonide (Kenalog) 0.1 % ointmentIndicat ions:Other specified dermatitis Apply to affected area on trunk and ext BID. 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 ABCDEs of melanoma was explained to the pt, advised pt on consistent sunscreen use (SPF > 30, UVA + UVB). Monthly self-exam, and avoid direct sunlight/tanning. 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 Overview (09/04/2017): Overview: Talent Director twice a year Varicose veins 01/26/2012 Aerophagia Resolved Problems Problem Noted Date Diagnosed Date Resolved Date Monoallelic mutation of CHEK 2 gene in female patient 09/04/2017 07/03/2018 S/P breast reconstruction, bilateral 07/01/2017 06/21/2018 Family history of melanoma 12/27/2015 0 07/03/2018 Adverse effect of paclitaxel 11/09/2015 07/03/2018 S/P LASIK (laser assisted in situ keratomileusis) 05/10/2012 06/21/2018 Encounters Date Type Department Care Team Description 08/20/2024 2:10 PM CDT Office Visit [facility] - Dermatology [address] [facility] ([place], [place]), [place] [address] Ted Newsome MD Nail dystrophy (Primary Dx); Rash and other nonspecific skin eruption 08/20/2024 Travel 07/26/2024 Travel from Last 3 Months Immunizations Immunization Administration Dates Next Due Covid Pfizer primary monoval ent 12+ yr 0.3mL Purple cap 03/08/2020,02/16/2020 INFLUENZA VACCINE 12/11/2020, 0,12/08/2018,2017 TD (AGE 7-ADULT) 08/03/2004 TDAP (7yrs+) 07/02/2020 [...] Sex Assigned at Female 04/28/2022 11:16 AM DRIER Legal Sex Female 10:54 AM CDT Gender Identity Female 04/28/2022 11:16 AM DRIER Sexual Orientation Straight 04/28/2022 11 :16 AM DRIER Occupation Industry Job Start Date Job End Date nurse Not on file Not on file Not on file Last Filed Vital Signs Vital Sign Reading Time Taken Comments Blood Pressure 108/75 04/03/2024 10:45 AM DRIER Pulse 73 04/03/2024 10:45 AM DRIER Temperature 36.7 C (98.1 F) 04/03/2024 10:45 AM DRIER Respiratory Rate 20 04/03/2024 10:45 AM DRIER Oxygen Saturation 99% 04/03/2024 10:45 AM DRIER Inhaled Oxygen Concentration 21% 09/25/2018 1 :00 PM CDT Weight 74.4 kg (164 lb) 04/03/2024 10:45 AM DRIER Height 167.6 cm (5' 6) 02/07/2024 10:37 AM DRIER Body Mass Index 26.47 02/07/2024 10:37 AM DRIER Plan of Treatment Upcoming Encounters Date Type Department Care Team (Late st Contact Info) Description 11/22/2024 10:00 AM CDT Office Visit [facility] - Dermatology [address] [place] [address], [place] [phone] Ted Newsome MD [address] [place] [address] [address] [place] [address] 01/08/2025 11:15 AM DRIER Office Visit [facility] - Plastic Surgery [address] [place] [address], [place] [phone] Dolores Rice MD [address] [place] [address] [address] [place] [address] 04/09/2025 10:20 AM DRIER Office Visit [facility] - Hematology/Oncology [address] [place] [phone] Sigrid Landon, LOAN ADMINISTRATOR-DISTANCE LEARNING ADMINISTRATOR [address] [place] [address] Health Maintenance Due Date Last Done Comments [...] 2023 07/11/2022, 12/04/2020, 03/08/2020, Additional history exists LIPID TESTING 12/29/2023 12/28/2018, 04/2018, 01/09/2018, Additional history exists DEPRESSION SCREENING 02/28/2024 INFLUENZA VACCINE (Season Ended) 2024 12/11/2020, 11/26/2020, 12/07/2019, Additional history exists SCREENING FOR DIABETES 02/09/2025 , 02/18/2021, 08/03/2020, [...] COMPREHENSIVE METABOLIC PANEL STAT 02/09/2022 11:40 AM DRIER Hormone receptor positive breast cancer, left Chemotherapy follow-up examination HEPATITIS C RNA QUANTITATIVE Routine 01/23/2019 3:21 PM DRIER Elevated liver function tests LIPID PROFILE STAT [...] and oxygen saturations were monitored continuously. The [id number] was introduced through the anus and advanced to the cecum, identified by appendiceal orifice and ileocecal valve. The colonoscopy was performed without difficulty. The patient tolerated the procedure well. Scope insertion time was 14 minutes. Scope withdrawal time was 23 minutes. The quality of the bowel preparation was evaluated using the BBPS ([place] Bowel Preparation Scale) with scores of: Right [...] or abscess without bleeding CPT copyright 2021 [employer]. All rights reserved. The codes documented in this report are preliminary and upon corn sheller operator review may be revised to meet current compliance requirements. Josy Agosto MD, 12/19/2022 11:46:05 AM This report has been signed electronically. Note Initiated On: 12/19/2022 10:47 AM Number of Addenda: 0 [facility] [address] [place], [place] [id number] [place] [address] PROVATION 12/19/2022 10:4 7 AM CDT us Josy Agosto MD GI PROCEDURE ORDERABLES Edited R esult - Final [facility] PROV[facility] * (ABNORMAL) COMPREHENSIVE METABOLIC PANEL (02/09/2022 11:40 AM DRIER) BUN 7 7 - 26 mg/dL 02/09/2022 12:20 PM [facility] Creatinine 0.77 0.56 - 0.96 mg/dL 02/09/2022 12:20 PM [facility] Sodium 139 136 - 145 mmol/L 02/09/2022 12:20 PM [facility] Potassium 3.3(L) 3.5 - 4.5 mmol/L 02/09/2022 12:20 PM [facility] Chloride 104 98 - 107 mmol/L 02/09/2022 12:20 PM [facility] CO2 27 22 - 29 mmol/L 02/09/2022 12:20 PM [facility] Glucose 74 70 - 115 mg/dL 02/09/2022 12:20 PM [facility] Calcium 9.1 8.4 - 10.2 mg/dL 02/09/2022 12:20 PM [facility] Protein Total 6.6 6.0 - 8.3 g/dL 02/09/2022 12:20 PM [facility] Albumin 3.5 3.4 - 5.0 g/dL 02/09/2022 12:20 PM [facility] Bilirubin Total 0.9 0.2 - 1.2 mg/dL 02/09/2022 12:20 PM [facility] Alkaline Phosphatase 81 40 - 150 U/L 02/09/2022 12:20 PM [facility] ALT 29 5 - 55 U/L 02/09/2022 12:20 PM [facility] AST 29 5 - 34 U/L 02/09/2022 12:20 PM [facility] Anion Gap 11 8 - 18 02/09/2022 12:20 PM [facility] BUN/Creatinine Ratio 9 7 - 23 02/09/2022 12:20 PM [facility] Osmolality Calculated 285 270 - 300 mOsm/kg 02/09/2022 12:20 PM [facility] Albumin/Globulin Ratio 1.1 1.1 - 2.3 02/09/2022 12:20 PM [facility] eGFR by CKD-EPI 90 >=90 mL/min/1.7 3 m2 02/09/2022 12:20 PM [facility] Blood BLOOD SPECIMEN / Unknown Lab Venipuncture / Unknown 02/09/2022 11:40 AM DRIER 02/09/2022 11:51 AM DRIER us Taylor Funez MD LAB - CHEMISTRY ORDERABLES Final Result [facility] [address] [place] [phone], [facility] [phone] * HEPATITIS C RNA QUANTITATIVE (01/23/2019 3:21 PM DRIER) Pathologist [facility] Hepatitis C RNA PCR, Interp Not Detected Not Detected 01/31/2019 2:15 PM DRIER [facility] Blood BLOOD SPECIMEN / Unknown Lab Venipuncture / Unknown 01/23/2019 3:21 PM DRIER 01/23/2019 3:55 PM DRIER Narrative [facility] - 01/31/2019 2:15 PM DRIER The Hepatitis C viral (HCV) RNA analysis utilized a serum sample, real-time reverse detention officer PCR, and is reported as Not Detected, [...] the isolation of HCV RNA with reverse detention officer of genomic HCV RNA followed by real-time PCR in the presence of an unrelated RNA internal control. The internal control ensures that RNA is isolated, and that no general significant inhibitors of the RT-PCR process are present. The analysis was performed using a U.S. FDA approved test methodology ([employer] Real Time HCV). us Breanna Rocha MD LAB - CHEMISTRY ORDERABLES Marie rosa Result [facility] [address] [place] [address], [facility] [phone] * (ABNORMAL) LIPID PROFILE (12/28/2018 2:12 PM CDT) [facility] Cholesterol Total 198 <200 mg/dL 12/28/2018 2:41 PM T [facility] HDL 63 >40 mg/dL 12/28/2018 2:41 PM T [facility] Comment: ATP III Classification of HDL Cholesterol: <40 mg/dL: Considered a major risk factor. >60 mg/dL: Considered a negative risk factor. LDL Calculated 120(H) <100 mg/dL 12/28/2018 2:41 PM T [facility] Comment: ATP III Classification of LDL Cholesterol: <100 mg/dL: Optimal 100 - 129 mg/dL: Near Optimal/Above Optimal 130 - 159 mg/dL: Borderline High 160 - 189 mg/dL: High >190 mg/dL: Very High Triglycerides 76 <150 mg/dL 12/28/2018 2:41 PM [facility] Comment: ATP III Classification of Triglycerides: <150 mg/dL: Normal 150 - 199 mg/dL: Borderline High 200 - 400 mg/dL: High >500 mg/dL: Very High Blood BLOOD SPECIMEN / Unknown Lab Venipuncture / Unknown 12/28/2018 2:12 PM CDT 12/28/2018 2:18 PM CDT us Leonor Douglas MD LAB - CHEMISTRY ORDERABLES Final Result Performing Organization Address [facility]/ZIP Co de Phone Number [address] [phone] * HIV-1 HIV-2 ANTIGEN/ANTIBODY (09/13/2018 8:53 AM CDT) HIV Antigen/Antibod y 1 & 2 Non-reacti ve Non-react leyla 09/13/2018 9:43 AM CDT [facility] Comment: Neither HIV-1 p24 Antigen nor HIV-1/HIV-2 Antibodies are detected. Blood BLOOD SPECIMEN / Unknown Venipuncture / Unknown 09/13/2018 8:53 AM CDT 09/13/2018 8:58 AM CDT Kip Meadows MD LAB - HEMATOLOGY ORDERABLES F inal Result Performing Organization Address [facility] Co de Phone Number [address] [phone] * MAMMO BILAT SCREENING (07/16/2015 8:01 AM [...] that previous mammograms have been performed at [facility]. However, no films could be found [...] thought that previous mammograms have been performedat [facility]. However, no films could be found [...] SHREYA REINA M.D. on07/29/2015 4:00 PM . us Historical Provider MD TAN ORDERABLES Final Re sult from Last 3 Months or Most Recently Relevant to Health Maintenance Insurance [facility] [place] [id number] Advance Directives Documents on File Type Date Recorded Patient Data Warehousing Architect Expl anation Advance Directives and Livin g Will 10/09/2015 12:00 AM Advance Directives and Livin g Will 10/08/2015 12:00 AM * Full Code (Latest Code Status on File) Date Activated Date Inactivated Comments 09/25/2018 12:45 PM 09/25/2018 11:08 PM * Full Code Date Activated Date Inactivated Comments 03/15/2016 1:36 PM 03/16/2016 2:35 PM Care Teams [place] Attendant Relationship Specialty Start Date End Date Brittney Mart MD [address] [place] [phone] PCP - General Internal Medicine 04/03/24 Andra Mart DO [address] [facility] [address] [place] [address] Peer Financial Counselor Cardiovascular Disease 10/06/20 Meghann Taveras MD [address] [facility] 3 [place] [address] Hematology and Oncology 04/23/23
--- OUTSIDE RECORDS SUMMARY | 2024-09-05 13:26 | XMS_ITS | Encounter Summary ---
Author Organization [facility] Address [address] [place] [address] Care Team Providers Care Sustainable Systems Analyst Name Role Phone Enid Lowe DO Primary Care Provider Andra Mart DO Unavailable [phone] Meghann Taveras MD Unavailable [phone] Brittney Mart MD Primary Care Provider [phone] Reason for Visit * Reason Onset Date Comments MEDICATION REFILL 03/24/2021 Encounter Details Date Type Department Care Team (Late st Contact Info) Description 03/24/2021 Refill [facility] General Internal Medicine [address] [place] [address], [place] [phone] Enid Lowe DO [address] [place] [address] [address] [facility] [place] [address] MEDICATION REFILL Social History Tobacco Use Types Packs/Day Years Used Date Smoking Tobacco: Never Smokeless Tobacco: Never Alcohol Use Standard Drinks/Week Comments Yes 0 (1 standard drink = 0.6 oz pur e alcohol) Comments No Sex and Gender Information Value Date Recorded Sex Assigned at Female 04/28/2022 11:16 AM ACTING PROFESSOR Legal Sex Female 10:54 AM CDT Gender Identity Female 04/28/2022 11:16 AM ACTING PROFESSOR Sexual Orientation Straight 04/28/2022 11 :16 AM ACTING PROFESSOR 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 Answer Date of Assessment Author No 11/18/2019 11:05 AM Jessica Chambers RN * Is person blind or have serious difficulty seeing? Answer Date of Assessment Author No 11/18/2019 11:05 AM Jessica Chambers RN * Does person have serious difficulty [...] Office Visit [facility] - Dermatology [address] [place] [address], [place] [address] Ted Newsome MD [address] [place] [address] 3 [place] [address] 01/08/2025 11:15 AM ACTING PROFESSOR Office Visit [facility] - Plastic Surgery [address] [place] [address], [place] [address] Dolores Rice MD [address] [place] [address] [address] [place] [address] 04/09/2025 10:20 AM ACTING PROFESSOR Office Visit [facility] - Hematology/Oncology [address] [place] [phone] Sigrid Landon APRN-POLICE ARTIST [address] [place] [address] documented as of this encounter Visit Diagnoses Diagnosis Neck pain Cervicalgia documented in this encounter Care Teams Sustainable Systems Analyst Relationship Specialty Start Date End Date Enid Lowe DO [address] [place] [address] PCP - General 10/03/17 04/02/24 Brittney Mart MD [address] [place] [phone] PCP - General Internal Medicine 04/03/24 Andra Mart DO [address] [facility] [address] [place] [address] Privacy Director Cardiovascular Disease 10/06/20 Meghann Taveras MD [address] [facility] 3 [place] [address] Hematology and Oncology 04/23/23 documented as of this encounter
[2024-09-05 14:28] LABS: Free T3 3.11 pg/mL (2.71-6.16); Free T4 Free Thyroxine 1.13 ng/dL (0.78-2.19)
[2024-09-05 14:42] LABS: Thyroid Stimulating Hormone 7.020 uIU/mL (0.465-4.680)
== END 2024-09-05 13:13 | disposition home or self-care (01) ==
LOC: ANHLAB 13:16
PROVIDERS: PCP Physician Assistant; Visit Provider Physician Assistant
DX: E05.00 Thyrotoxicosis with diffuse goiter without thyrotoxic crisis or storm (principal)
CPT/HCPCS: 36415; 84439; 84443; 84481; 86800

== ENCOUNTER → 2025-01-07 11:45 | Outpatient (CLI) | payer OTHER, SELFPAY ==
--- NOTE | ~2025-01-07 | XR_ITS ---
XR lumbar spine 2-3V Indication: LBP/tailbone pain 2.5 weeks after stepped off curb wrong Comparison: None Findings: Probable right-sided sacral plasty changes are noted, no acute fracture is identified. The disc heights are intact. Soft tissues unremarkable Impression: No acute abnormality. Reviewed, dictated and finalized at location P. SOFTWARE ENGINEER Impression: No acute abnormality.
== END ==
LOC: EXPCRAD 11:48
PROVIDERS: PCP Physician Assistant; Visit Provider Physician Assistant
DX: M54.50 Low back pain, unspecified (principal)
CPT/HCPCS: 72100

== ENCOUNTER → 2025-01-12 14:29 | Outpatient (CLI) | payer OTHER, SELFPAY ==
--- NOTE | ~2025-01-12 | XR_ITS ---
EXAMINATION: XR sacrum coccyx min 2V, 01/12/2025 14:35 TELEVISION PRESENTER HISTORY: BILATERAL LOW BACK PAIN COMPARISON: No comparisons available. Findings: No fracture is identified, and sacral plasty changes noted on the right side. Mild osteopenia. There is no sclerosis of the sacroiliac joints with no significant osteophyte formation or erosions. Soft tissues unremarkable. Impression: No acute fracture or malalignment. Reviewed, dictated and finalized at location P. VISION PRESENTER Impression: No acute fracture or malalignment.
== END ==
LOC: EXPCRAD 14:31
PROVIDERS: PCP Physician Assistant; Visit Provider Physician Assistant
DX: M54.50 Low back pain, unspecified (principal)
CPT/HCPCS: 72220